=== PATIENT | female | born 1950 | race Caucasian/White ===

== ENCOUNTER → 2016-06-12 | Outpatient (CLI) | payer OTHER ==
[~2016-06-12] MED LIST: ALBUAER2 INH; ASPI81TA28 PO; CALC600T PO; MULTTAB58 PO; POTA1TAB94 PO; SPRIN INH; SYMIN160 INH; VITA400C3 PO
[2016-06-12 12:47] LABS: ALT/SGPT 19 U/L (12-78); AST/SGOT 18 U/L (15-37); BLOOD UREA NITROGEN 14 mg/dl (7-18); BUN/CREATININE RATIO 21.2 (10-20); CALCIUM 8.9 mg/dl (8.5-10.1); CARBON DIOXIDE 30 mmol/L (21-32); CHLORIDE 105 mmol/L (98-107); CREATININE 0.68 mg/dl (0.60-1.20); GLUCOSE 85 mg/dl (70-99); POTASSIUM 3.8 mmol/L (3.5-5.1); SODIUM 141 mmol/L (136-145)
[2016-06-12 12:49] LABS: ALB/GLOB RATIO 1.1 (0.9-2); ALKALINE PHOSPHATASE 59 U/L (45-117); CHOLESTEROL 219 mg/dl (0-200); CHOLESTEROL/HDL RATIO 3.1; HDL CHOLESTEROL 71 mg/dl; LDL CHOLESTEROL CALCULATED 136 mg/dl; TRIGLYCERIDES 61 mg/dl (0-150); VERY LOW DENSITY LIPOPROT CALC 12 mg/dl
== END | disposition home or self-care (01) ==
LOC: C.LABBFT 07:49
PROVIDERS: ATTEND Nurse Practitioner
DX: Z13.6 Encounter for screening for cardiovascular disorders (principal); K80.20 Calculus of gallbladder without cholecystitis without obstruction

== ENCOUNTER → 2016-06-30 | Outpatient (CLI) | payer OTHER | END | disposition home or self-care (01) | LOC: C.LABSPEC 12:25 | PROVIDERS: ATTEND Nurse Practitioner | DX: Z12.11 Encounter for screening for malignant neoplasm of colon (principal) ==

== ENCOUNTER → 2016-08-17 | Outpatient (CLI) | payer OTHER | END | disposition home or self-care (01) | LOC: C.CPL 12:28 | PROVIDERS: ATTEND Orthopaedic Surgery Sports Medicine | DX: M20.11 Hallux valgus (acquired), right foot (principal); R94.31 Abnormal electrocardiogram [ECG] [EKG] ==

== ENCOUNTER → 2017-01-16 | Outpatient (CLI) | payer OTHER | END | disposition home or self-care (01) | LOC: C.MAMM 12:35 | PROVIDERS: ATTEND Nurse Practitioner | DX: M81.0 Age-related osteoporosis without current pathological fracture (principal); M85.89 Other specified disorders of bone density and structure, multiple sites ==

== ENCOUNTER 2017-02-04 09:30 | Emergency (ER) | payer OTHER ==
[~2017-02-04] VITALS: Ht 154.9 cm; Wt 45.0 kg
[2017-02-04 09:40] VITALS: Ht 154.9 cm; Wt 45.0 kg
[2017-02-04 10:14] VITALS: O2SAT 98
[2017-02-04 10:26] LABS: BASO % 0.4 %; BASO ABS # 0.03 K/uL (0-0.2); COMPLETE YES; EOS % 0.4 %; HEMATOCRIT 45.2 % (37-47); IG% 0.1 %; LYMPH % 10.7 %; LYMPH ABS # 0.73 K/uL (1.2-3.4); MEAN CELL VOLUME 88.6 fL (80-100); MEAN CORPUSCULAR HEMOGLOBIN 29.8 pg (25-34); MEAN CORPUSCULAR HGB CONC 33.6 g/dl (32-36); MEAN PLATELET VOLUME 10.8 fL (7.4-10.4); MONO % 9.8 %; NEUT % 78.6 %; PLATELET COUNT 190 K/uL (130-400); WHITE BLOOD COUNT 6.81 K/uL (4.8-10.8)
[2017-02-04 10:46] LABS: CALCIUM 9.5 mg/dl (8.5-10.1); CREATININE 0.73 mg/dl (0.60-1.20); POTASSIUM 4.5 mmol/L (3.5-5.1)
--- NOTE | 2017-02-04 10:48 | DIAGNOSTIC IMAGING REPORT ---
CHEST 2 VIEWS ROUTINE CLINICAL HISTORY: 66 years-old Female presenting with eval for pna, shortness of breath, chest pain. TECHNIQUE: PA and lateral views of the chest were obtained. COMPARISON: 10/24/2015. FINDINGS: Atherosclerosis of aortic arch. Cardiac silhouette normal in size. Mild hyperinflation. Heterogeneity of lung parenchyma. No focal infiltrate. No pleural effusion or pneumothorax. Osseous structures normal. Upper abdomen normal. IMPRESSION: 1. No acute cardiopulmonary disease. 2. Findings suggestive of emphysema. Electronically signed by: Ochoa Conklin M.D. 02/04/2017 10:47 AM Dictated Date/Time: 02/04/2017 10:45 AM
[2017-02-04] MEDS ORDERED: FLUT1INH INH (10:53)
[2017-02-04] MEDS ORDERED: FEXO1TAB46 PO (10:55)
[2017-02-04] MEDS ORDERED: PRVHFAIN INH (10:55)
[2017-02-04 10:57] VITALS: BP 130/66; PULSE 70; TEMP 36.5; O2SAT 91
--- NOTE | 2017-02-04 13:58 | EMERGENCY ROOM VISIT NOTE ---
History Report prepared by Sharon: Nora Faustin Under the Supervision of: Dr. Jay Strong M.D. First contact with patient: 09:50 Chief Complaint: SHORTNESS OF BREATH Stated Complaint: SOB,CHEST PAIN Nursing Triage Summary: Pt c/o SOB and nonproductive cough since this am History of Present Illness The patient is a 66 year old female who presents to the Emergency Room with complaints of persistent deep cough starting this morning. The patient notes that she has not been feeling herself for the past few days. She has been spending more time lying around the house. She started having a dry cough this morning. She does feel congested, but she has not coughed anything up. She has some chest tightness with deep breaths only which is chronic for her. She does have a history of COPD and often gets this tightness at times with deep breaths. She denies any fever, SOB, wheezing, leg swelling, or leg pain. She denies any history of heart disease. She is not on oxygen at home. Her main reason for coming in today was because she did not wish to have her illness progress to the point where she needed to be admitted. Source of History: patient Onset: this morning Position: other (global) Quality: other (deep cough) Timing: other (persistent) Associated Symptoms: No fevers, No SOB Note: Pt reports congestion, chest tightness with deep inspiration. Pt denies wheezing , leg swelling/pain. Review of Systems See HPI for pertinent positives & negatives. A total of 10 systems reviewed and were otherwise negative. Past Medical & Surgical Medical Problems: (1) COPD (chronic obstructive pulmonary disease) (2) SOB (shortness of breath) Family History No pertinent family history stated. Social History Smoking Status: Former Smoker Alcohol Use: none Drug Use: none Housing Status: lives alone Occupation Status: employed Current/Historical Medications Scheduled Aspirin (Aspirin Ec), 81 MG PO DAILY Calcium Carbonate (Calcium 600), 1,200 MG PO DAILY Fexofenadine Hcl (Evita), 180 MG PO DAILY Fluticasone Furoate-Vilanterol (Breo Ellipta), 1 PUFF INH DAILY Multiple Vitamin (Multivitamin), 1 TAB PO DAILY Potassium Gluconate (Gnc Potassium Gluconate 9), 595 MG PO DAILY Vitamin E (Vitamin E 400 Iu), 400 INTER.UNIT PO DAILY Scheduled PRN Albuterol (Ventolin Hfa), 2 PUFFS INH DAILY PRN for SOB/Wheezing Allergies Coded Allergies: No Known Allergies (Unverified , 02/04/17) Physical Exam Vital Signs Date Time Temp Pulse Resp B/P (MAP) Pulse Ox O2 Delivery O2 Flow Rate FiO2 02/04/17 10:57 36.5 70 20 130/66 91 Room Air 02/04/17 10:25 77 02/04/17 10:14 98 Nasal Cannula 02/04/17 09:40 90 Room Air 02/04/17 09:40 37.0 95 16 139/77 91 Room Air Physical Exam Constitutional: Vital signs reviewed. Eyes: Pupils are equal round reactive to light. Conjunctiva are noninjected. ENT: Pharynx is clear without erythema or exudate. Mucous membranes are moist. Neck supple without meningeal signs. Respiratory: Clear to auscultation bilaterally. Breath sounds are equal bilaterally. No wheezing or rales. Cardiovascular: Regular rate and rhythm. No rubs or gallops. GI: Soft, nondistended and nontender. Bowel sounds are present. Musculoskeletal: No peripheral edema. No lower extremity tenderness. Integumentary: No cyanosis. Neurological: The patient is awake and alert. No focal deficits. Psychiatric: Normal affect. Medical Decision & Procedures ER Provider Diagnostic Interpretation: X-ray results as stated below per interpretation by me and the radiologist: CHEST 2 VIEWS ROUTINE CLINICAL HISTORY: 66 years-old Female presenting with eval for pna, shortness of breath, chest pain. TECHNIQUE: PA and lateral views of the chest were obtained. COMPARISON: 10/24/2015. FINDINGS: Atherosclerosis of aortic arch. Cardiac silhouette normal in size. Mild hyperinflation. Heterogeneity of lung parenchyma. No focal infiltrate. No pleural effusion or pneumothorax. Osseous structures normal. Upper abdomen normal. IMPRESSION: 1. No acute cardiopulmonary disease. 2. Findings suggestive of emphysema. Electronically signed by: Ochoa Conklin M.D. 02/04/2017 10:47 AM Dictated Date/Time: 02/04/2017 10:45 AM Laboratory Results 02/04/17 10:05 Red Blood Count 5.10, Mean Corpuscular Volume 88.6, Mean Corpuscular Hemoglobin 29.8, Mean Corpuscular Hemoglobin Concent 33.6, Mean Platelet Volume 10.8, Neutrophils (%) (Auto) 78.6, Lymphocytes (%) (Auto) 10.7, Monocytes (%) (Auto) 9.8, Eosinophils (%) (Auto) 0.4, Basophils (%) (Auto) 0.4, Neutrophils # (Auto) 5.34, Lymphocytes # (Auto) 0.73, Monocytes # (Auto) 0.67, Eosinophils # (Auto) 0.03, Basophils # (Auto) 0.03 02/04/17 10:05 Test 02/04/17 10:05 02/04/17 10:11 White Blood Count 6.81 K/uL (4.8-10.8) Red Blood Count 5.10 M/uL (4.2-5.4) Hemoglobin 15.2 g/dL (12.0-16.0) Hematocrit 45.2 % (37-47) Mean Corpuscular Volume 88.6 fL (80-100) Mean Corpuscular Hemoglobin 29.8 pg (25-34) Mean Corpuscular Hemoglobin Concent 33.6 g/dl (32-36) Platelet Count 190 K/uL (130-400) Mean Platelet Volume 10.8 fL (7.4-10.4) Neutrophils (%) (Auto) 78.6 % Lymphocytes (%) (Auto) 10.7 % Monocytes (%) (Auto) 9.8 % Eosinophils (%) (Auto) 0.4 % Basophils (%) (Auto) 0.4 % Neutrophils # (Auto) 5.34 K/uL (1.4-6.5) Lymphocytes # (Auto) 0.73 K/uL (1.2-3.4) Monocytes # (Auto) 0.67 K/uL (0.11-0.59) Eosinophils # (Auto) 0.03 K/uL (0-0.5) Basophils # (Auto) 0.03 K/uL (0-0.2) RDW Standard Deviation 43.5 fL (36.4-46.3) RDW Coefficient of Variation 13.3 % (11.5-14.5) Immature Granulocyte % (Auto) 0.1 % Immature Granulocyte # (Auto) 0.01 K/uL (0.00-0.02) Prothrombin Time 10.0 SECONDS (9.0-12.0) Prothromb Time International Ratio 1.0 (0.9-1.1) Activated Partial Thromboplast Time 25.4 SECONDS (21.0-31.0) Partial Thromboplastin Ratio 1.0 Anion Gap 3.0 mmol/L (3-11) Est Creatinine Clear Calc Drug Dose 55.3 ml/min Estimated GFR () 100.9 Estimated GFR (Non- 87.0 BUN/Creatinine Ratio 18.0 (10-20) Calcium Level 9.5 mg/dl (8.5-10.1) Bedside Troponin I < 0.030 ng/ml (0-0.045) Laboratory results as reviewed by me. ECG Indication: other (chest tightness) Rate (beats per minute): 75 Rhythm: normal sinus Findings: no acute ischemic change, no ectopy ED Course 0956: The patient was evaluated in room B7. A complete history and physical exam was performed. 1106: Upon reevaluation, the patient appeared to have improvement of her symptoms. I discussed tonight's findings with her and the need for follow up. She verbalized agreement of the treatment plan. She will follow up within 2 days. She was discharged home. Medical Decision This is a 66-year-old female who presents with a cough and congestion. Differential diagnosis includes COPD exacerbation, bronchitis, pneumonia, URI, cardiac. I did perform a limited focused review of portions of the patient's old chart on the electronic medical record. The patient has had no recent pertinent visits to this hospital. I did evaluate the patient as noted above. The patient is presenting with cold symptoms. She denies having any shortness of breath. She does complain of some chest tightness with deep breaths only and states this is normal for her with her COPD. IV access was established. I did order and personally review the patient's 12-lead EKG and chest x-ray as described above. Her twelve-lead EKG is unremarkable. Chest x-ray does not show any signs of pneumonia. I did order and review the patient's blood work as noted in the electronic medical record. Her white blood cell count is not elevated. Troponin is negative. I did reassess patient. I did discuss the test results with her. At this time I do not see any indication for hospitalization or antibiotic treatment. I did recommend, however, close follow up with her doctor for reassessment within the next few days and return for any worsening symptoms or new symptoms as outlined below. She was discharged in good condition. Medication Reconcilliation Current Medication List: was personally reviewed by me Blood Pressure Screening Patient's blood pressure: Elevated blood pressure Blood pressure disposition: Referred to PCP Impression Primary Impression: Acute bronchitis Additional Impression: COPD (chronic obstructive pulmonary disease) Scribe Attestation The scribe's documentation has been prepared under my direct and personally reviewed by me in its entirety. I confirm that the note above accurately reflects all work, treatment, procedures, and medical decision making performed by me. Departure Information Dispostion Home / Self-Care Referrals Mary Ross C.R.N.PRand (PCP) Forms HOME CARE DOCUMENTATION FORM, IMPORTANT VISIT INFORMATION Patient Instructions ED Upper Resp Infec No Abx Tx, My [facility] Additional Instructions You have been examined and treated today on an emergency basis only. This is not a substitute for, or an effort to provide, complete comprehensive medical care. It is impossible to recognize and treat all injuries or illnesses in a single emergency department visit. It is therefore important that you follow up closely with your physician this week. Call as soon as possible for an appointment. Return for worsening symptoms or if you develop fever, vomiting, difficulty breathing or any other concerning symptoms. Problem Qualifiers Primary Impression: Acute bronchitis Bronchitis organism: unspecified organism Qualified Codes: J20.9 - Acute bronchitis, unspecified Additional Impression: COPD (chronic obstructive pulmonary disease) COPD type: unspecified COPD Qualified Codes: J44.9 - Chronic obstructive pulmonary disease, unspecified
== END 2017-02-04 11:25 | disposition home or self-care (01) ==
LOC: C.EDB 09:31
DX: J20.9 Acute bronchitis, unspecified (principal); J44.9 Chronic obstructive pulmonary disease, unspecified; Z87.891 Personal history of nicotine dependence; Z79.82 Long term (current) use of aspirin; Z79.899 Other long term (current) drug therapy

== ENCOUNTER → 2017-03-27 | Outpatient (CLI) | payer OTHER ==
[~2017-03-27] MED LIST changes: -ALBUAER2 INH; +FEXO1TAB46 PO; +FLUT1INH INH; +HYDR-5688 PO; +PRVHFAIN INH; -SPRIN INH; -SYMIN160 INH
[2017-03-27 12:09] LABS: HEMATOCRIT 43.9 % (37-47); HEMOGLOBIN 14.7 g/dL (12.0-16.0); MEAN CELL VOLUME 88.2 fL (80-100); MEAN CORPUSCULAR HEMOGLOBIN 29.5 pg (25-34); MEAN CORPUSCULAR HGB CONC 33.5 g/dl (32-36); MEAN PLATELET VOLUME 10.9 fL (7.4-10.4); PLATELET COUNT 223 K/uL (130-400); RED CELL DISTRIBUTION WIDTH CV 13.9 % (11.5-14.5); RED CELL DISTRIBUTION WIDTH SD 44.9 fL (36.4-46.3); WHITE BLOOD COUNT 6.54 K/uL (4.8-10.8)
[2017-03-27 12:18] LABS: PTT PATIENT 25.5 SECONDS (21.0-31.0)
== END | disposition home or self-care (01) ==
LOC: C.CPL 10:37
PROVIDERS: ATTEND Podiatrist Foot & Ankle Surgery
DX: Z01.818 Encounter for other preprocedural examination (principal)

== ENCOUNTER → 2017-04-02 | Day surgery (SDC) | payer OTHER ==
[2017-03-29 12:00] VITALS: Ht 154.9 cm; Wt 44.5 kg
[~2017-04-02] VITALS: Ht 154.9 cm; Wt 44.5 kg
[~2017-04-02] MED LIST changes: +CEFAZOLIN 1000MG IV PUSH 7.5 ML IV SCH; +FENTANYL CITRATE INJ 50 MCG/1 ML 2 ML VIAL ONE; +LACTATED RINGER'S 1000ML 1,000 ML IV SCH; +LIDOCAINE HCL 1% 20 ML VIAL ONE; +LIDOCAINE HCL 2% 2 ML VIAL (20MG/ML) ONE; +MIDAZOLAM HCL 1 MG/ML 2ML VIAL ONE; +PROPOFOL IV EMULSION 10 MG/ML 20 ML VIAL IV ONE
--- NOTE | 2017-04-02 12:06 | History & Physical Bridge - SC ---
H&P Re-Evaluation Bridge Note: I have examined the patient, reviewed the History & Physical and in the interval since the performance of the History & Physical I have noted the following changes of clinical significance: No changes noted. Patient understands and elects to proceed with surgery consisting of right 4th digit amputation. All consents have been signed. No guarantees were made. All questions have been answered to the patient's satisfaction.
--- NOTE | 2017-04-02 14:17 | [facility] Post Operative Brief Note ---
Immediate Operative Summary Operative Date Apr 02, 2017. Pre-Operative Diagnosis Right Foot Hammertoe, Pain Post-Operative Diagnosis Same Procedure(s) Performed Right Foot Fourth Digit Amputation Surgeon Dr. Bell Intellectual Property Manager Surgeon(s) None Estimated Blood Loss 2 ml Findings Consistent with Post-Op Diagnosis Specimens A. Right Foot Fourth Digit Drains None Anesthesia Type MAC Complication(s) none Disposition Accompanied Pt To Recovery: no
--- NOTE | 2017-04-02 14:23 | [facility] Operative Report ---
Operative Report Operative Date Apr 02, 2017. Pre-Operative Diagnosis Painful overlapping 4th digit right foot Post-Operative Diagnosis Painful overlapping 4th digit right foot Procedure(s) Performed Amputation 4th digit right foot Surgeon Kehinde Bell DPM Estimated Blood Loss 2 ml Specimens Right 4th digit sent to pathology for histopathological specimen Drains None Anesthesia Type MAC Complication(s) none Disposition no Indications This is a 66 year old female with past medical history significant for asthma and seasonal allergies who presented to our office with the chief complaint of an overriding 4th digit on the right foot. The 4th digit is overriding the 3rd digit. Patient has extensive past surgical history to her right foot done by an outside surgeon consisting of previous hammertoe arthrodesis surgeries to her 2nd and 3rd digits on her right foot, as well as previous hallux valgus surgery to her right 1st TMP joint. Patient has attempted all conservative treatments, consisting of taping, toe spacers, wider shoes, Budin splint, all of which has failed. She is requesting surgical amputation of her 4th digit right foot. I did recommend patient undergo syndactylization of her 4th digit to her 3rd digit in an attempt to salvage this toe. Patient deferred this however due to potential risk of wound healing complications and her desire to be back to work as quickly as possible. The perioperative indications, planned procedure, possible benefits, risks, complications, and anticipated healing time and management were discussed in detail with the patent. She understands and elects to proceed with surgery at this time. All consents have been signed. No guarantees were made. All questions have been answered to the patient's satisfaction. Medical clearance has been obtained by the patient's primary care physician. Description of Procedure Under mild sedation, the patient was brought into the OR and placed on the table in a supine position. Final verification of the patient, surgery, and limb designation was performed via the time-out procedure. A pneumatic ankle tourniquet was then placed on the patient's right ankle. IV local sedation was then initiated by the anesthesia team. Local block was then performed about the operative site of the right foot. The right foot was then scrubbed, prepped and draped in the usual aseptic manner. An Esmarch bandage was used to exsanguinate the patient's right foot and the pneumatic ankle tourniquet was inflated to 250 mmHg. At this time, surgery began as follows: Attention was directed to the dorsal aspect of the 4th digit right foot, where a fishmouth type incision was made. This incision was made down to the level of bone and encompassed the 4th digit. The 4th digit was then disarticulated at the MTP joint, taking care to identify and retract all vital neurovascular structures. At this time, the 4th digit was resected in toto and passed from the operative field. This was sent to pathology for gross histopathological specimen. The wound was then flushed with copious amounts of NSS. Deep closure was performed with 4-0 vicryl. Skin closure was performed with 3-0 nylon. A post -operative dressing was then applied consisting of betadine soaked adaptik, 4x4 gauze, kerlix and an tal wrap. At this time, the pneumatic ankle tourniquet was deflated and prompt hyperemic response was noted to the remaining digits of the right foot. Patient tolerated the procedure and anesthesia well. She was transferred to recovery with vital signs stable and vascular status intact to the right foot. I attest to the content of the Intraoperative Record and any orders documented therein. Any exceptions are noted below.
--- NOTE | 2017-04-02 14:23 | Discharge Instructions-SurgCtr ---
Discharge Instructions Date of Service Apr 02, 2017. Visit Reason for Visit: Right Foot Hammertoes, Pain Discharge Discharge Diagnosis / Problem: Post-op amputation right 4th digit Discharge Goals Goal(s): Decrease discomfort, Improve function Activity Recommendations Activity Limitations: as noted below Limit ambulation to right foot. Rest, ice at ankle, elevate right foot. May ambulate with assistance of CAM boot. Anesthesia . Post Anesthesia Instructions: If you have had General Anesthesia or IV Sedation: * Do not drive today. * Resume driving when surgeon permits. * Do not make important decisions or sign legal documents today. * Call surgeon for: 1. Temperature elevations greater than 101 degrees F. 2. Uncontrollable pain. 3. Excessive bleeding. 4. Persistent nausea and vomiting. 5. Medication intolerance (nausea, vomiting or rash). * For nausea and vomiting use only clear liquids such as: tea, soda, bouillon until nausea subsides, then gradually increase diet as tolerated. * If you have any concerns or questions, call your surgeon's office. If physician is unavailable and it is an emergency, call 911 or go to the nearest emergency room. . Instructions / Follow-Up Instructions / Follow-Up Keep dressing dry, clean and intact. Follow-up within [address] Bell in the office. Diet Recommendations Home Diet: resume previous diet Procedures Procedures Performed: Amputation right 4th digit Pending Studies Studies pending at discharge: no Medical Emergencies . Who to Call and When: Medical Emergencies: If at any time you feel your situation is an emergency, please call 911 immediately. . Non-Emergent Contact Non-Emergency issues call your: Primary Care Provider . . "Provider Documentation" section prepared by Kehinde Bell. . [place] Drug Monitoring Program Search Results: patient reviewed within database, no issues identified
[2017-04-02 14:25] VITALS: TEMP 36.4
--- NOTE | 2017-04-02 14:46 | Anesthesia Progress Nt - [facility] ---
Anesthesia Post Op Note Date & Time Apr 02, 2017 at 14:46 Vital Signs Pain Intensity: 0 Vital Signs Past 12 Hours Date Time Temp Pulse Resp B/P (MAP) Pulse Ox O2 Delivery O2 Flow Rate FiO2 04/02/17 14:25 36.4 68 16 130/67 (88) 92 Room Air 04/02/17 11:51 36.6 75 16 113/69 (84) 95 Room Air Notes Mental Status: alert / awake / arousable, participated in evaluation Pt Amnestic to Procedure: Yes Nausea / Vomiting: adequately controlled Pain: adequately controlled Airway Patency, RR, SpO2: stable & adequate BP & HR: stable & adequate Hydration State: stable & adequate Anesthetic Complications: no major complications apparent
[2017-04-02 14:54] VITALS: BP 143/76; PULSE 56; O2SAT 95
--- NOTE | 2017-04-04 14:38 | DIAGNOSTIC IMAGING REPORT ---
OSMAN FOOT, 2 VIEWS CLINICAL HISTORY: 66 years-old Female presenting with Post-op portable. TECHNIQUE: Frontal and lateral views of the right foot were obtained. COMPARISON: None. FINDINGS: Plate and screw fixation of the medial cuneiform and first metatarsal with arthrodesis of the first tarsometatarsal articulation. Osteopenia. Osteolysis of the heads of the proximal phalanges of the second and third toes. The fourth toe is absent. Focal soft tissue gas noted in place of the fourth toe. Allowing for osteopenia, no evidence of fracture or acute malalignment. Enthesophyte noted at the origin of the plantar fascia. Atherosclerosis. IMPRESSION: 1. Posterior fixation across the first metatarsal metatarsal articulation. 2. Osteopenia. 3. Osteolysis of the heads of the proximal phalanges of the second and third toes. This raises concern for osteomyelitis. The chronicity cannot be determined as no prior radiographs are currently available for review. The report will be called/faxed according to standard departmental protocol. Electronically signed by: Ochoa Conklin M.D. 04/04/2017 2:36 PM Dictated Date/Time: 04/04/2017 2:34 PM
== END | disposition home or self-care (01) ==
LOC: X.SURG 11:32
PROVIDERS: ATTEND Podiatrist Foot & Ankle Surgery
DX: M20.40 Other hammer toe(s) (acquired), unspecified foot (principal); M20.5X1 Other deformities of toe(s) (acquired), right foot; J44.9 Chronic obstructive pulmonary disease, unspecified; M25.50 Pain in unspecified joint; M21.619 Bunion of unspecified foot; L84 Corns and callosities; M81.0 Age-related osteoporosis without current pathological fracture; Z87.891 Personal history of nicotine dependence; Z79.899 Other long term (current) drug therapy; Z79.82 Long term (current) use of aspirin

== ENCOUNTER → 2017-05-30 | Outpatient (CLI) | payer OTHER ==
[~2017-05-30] MED LIST changes: -CEFAZOLIN 1000MG IV PUSH 7.5 ML IV SCH; -FENTANYL CITRATE INJ 50 MCG/1 ML 2 ML VIAL ONE; -HYDR-5688 PO; -LACTATED RINGER'S 1000ML 1,000 ML IV SCH; -LIDOCAINE HCL 1% 20 ML VIAL ONE; -LIDOCAINE HCL 2% 2 ML VIAL (20MG/ML) ONE; -MIDAZOLAM HCL 1 MG/ML 2ML VIAL ONE; -PROPOFOL IV EMULSION 10 MG/ML 20 ML VIAL IV ONE
--- NOTE | 2017-05-30 14:04 | DIAGNOSTIC IMAGING REPORT ---
(CHEST) THORAX WITHOUT CLINICAL HISTORY: 66 years-old Female presenting with J44.9 Chronic obstructive pulmonary disease Scheduled 05/30/17 at. TECHNIQUE: Multidetector CT imaging of the chest was performed without the use of intravenous contrast. IV contrast: None. A dose lowering technique was used consistent with the principles of ALARA (as low as reasonably achievable). COMPARISON: 12/21/2016. CT DOSE (mGy.cm): The estimated cumulative dose is 162.45 mGycm. FINDINGS: Carbon Brushes Assembler topogram: Unremarkable. On soft tissue windows, normal thyroid and thoracic inlet. No axillary, supraclavicular, or mediastinal lymphadenopathy. Evaluation of the babar limited without intravenous contrast. Atherosclerosis of the aorta. Normal heart size. Coronary artery calcification. No pericardial or pleural effusion. Upper abdomen normal. On lung windows, moderate to severe emphysema. Scattered areas of linear reticular opacities likely scarring and unchanged from prior. Calcified granuloma evident in the right middle lobe. No new focal nodule or infiltrate. Bronchial wall thickening. Central airways patent. On bone windows, old left rib fractures suggested. No acute osseous injury. IMPRESSION: 1. Moderate to severe emphysema. 2. Bronchial wall thickening compatible with bronchitis. 3. No new focal nodule. Electronically signed by: Ochoa Conklin M.D. 05/30/2017 2:03 PM Dictated Date/Time: 05/30/2017 1:55 PM
== END | disposition home or self-care (01) ==
LOC: C.CTS 12:41
PROVIDERS: ATTEND Internal Medicine Pulmonary Disease
DX: J44.9 Chronic obstructive pulmonary disease, unspecified (principal)

== ENCOUNTER → 2017-06-12 | Outpatient (CLI) | payer OTHER ==
[~2017-06-12] MED LIST changes: +PRT40 PO; +SACC250C3 PO; +VANC5CAP PO; +VITA1TAB4 PO
[2017-06-12 17:00] LABS: BASO % 0.6 %; BASO ABS # 0.04 K/uL (0-0.2); EOS ABS # 0.14 K/uL (0-0.5); HEMOGLOBIN 14.8 g/dL (12.0-16.0); IG# 0.03 K/uL (0.00-0.02); LYMPH % 21.2 %; LYMPH ABS # 1.51 K/uL (1.2-3.4); MEAN CELL VOLUME 88.4 fL (80-100); MEAN CORPUSCULAR HEMOGLOBIN 29.7 pg (25-34); MEAN CORPUSCULAR HGB CONC 33.6 g/dl (32-36); MEAN PLATELET VOLUME 11.2 fL (7.4-10.4); MONO % 8.3 %; MONO ABS # 0.59 K/uL (0.11-0.59); NEUT % 67.5 %; NEUT ABS # 4.81 K/uL (1.4-6.5); PLATELET COUNT 244 K/uL (130-400); RED CELL DISTRIBUTION WIDTH CV 13.6 % (11.5-14.5); RED CELL DISTRIBUTION WIDTH SD 44.4 fL (36.4-46.3); WHITE BLOOD COUNT 7.12 K/uL (4.8-10.8)
[2017-06-12 17:09] LABS: BLOOD UREA NITROGEN 15 mg/dl (7-18); CREATININE 0.68 mg/dl (0.60-1.20)
== END | disposition home or self-care (01) ==
LOC: C.LABBFT 14:13
PROVIDERS: ATTEND Physician Assistant Medical
DX: R10.813 Right lower quadrant abdominal tenderness (principal)

== ENCOUNTER 2017-06-15 10:45 | Inpatient (IN) | payer OTHER ==
[~2017-06-15] VITALS: Ht 154.9 cm; Wt 43.0 kg
[~2017-06-15 10:45] MED LIST changes: -PRT40 PO; -SACC250C3 PO; -VANC5CAP PO; -VITA1TAB4 PO
[2017-06-15] MEDS ORDERED: SODIUM CHLORIDE 0.9% 1000ML 1,000 ML IV STA ×2 (11:11→14:51)
[2017-06-15] MEDS ORDERED: METHYLPREDNISOLONE 125 MG VIAL IV STA (11:20)
[2017-06-15 11:28] LABS: BASO % 0.1 %; BASO ABS # 0.01 K/uL (0-0.2); HEMATOCRIT 48.2 % (37-47); HEMOGLOBIN 16.7 g/dL (12.0-16.0); IG# 0.03 K/uL (0.00-0.02); LYMPH ABS # 0.83 K/uL (1.2-3.4); MEAN CELL VOLUME 86.4 fL (80-100); MEAN CORPUSCULAR HEMOGLOBIN 29.9 pg (25-34); MEAN CORPUSCULAR HGB CONC 34.6 g/dl (32-36); MONO % 14.1 %; MONO ABS # 1.29 K/uL (0.11-0.59); NEUT % 76.5 %; NEUT ABS # 7.02 K/uL (1.4-6.5); PLATELET COUNT 238 K/uL (130-400); RED CELL DISTRIBUTION WIDTH CV 13.7 % (11.5-14.5); RED CELL DISTRIBUTION WIDTH SD 43.2 fL (36.4-46.3); WHITE BLOOD COUNT 9.18 K/uL (4.8-10.8)
[2017-06-15] MEDS ORDERED: ALBUT/IPRATROP 3MG/0.5MG NEB 3 ML VIAL INH ONE (11:30)
[2017-06-15 11:31] VITALS: PULSE 87; O2SAT 98
[2017-06-15 11:37] LABS: ALBUMIN 4.1 gm/dl (3.4-5.0); CALCIUM 9.4 mg/dl (8.5-10.1); CREATININE 1.2 mg/dl (0.60-1.20); POTASSIUM 4.1 mmol/L (3.5-5.1)
--- NOTE | 2017-06-15 11:38 | DIAGNOSTIC IMAGING REPORT ---
CHEST ONE VIEW PORTABLE CLINICAL HISTORY: Chest pain. COMPARISON STUDY: Chest CT May 30, 2017. FINDINGS: Severe emphysema is noted. No pneumothorax or pleural effusion is noted. There is no consolidation or evidence for pulmonary edema. Cardiomediastinal silhouette is normal. IMPRESSION: 1. No acute cardiopulmonary findings. 2. Severe emphysema. Electronically signed by: Mahad Shah M.D. 06/15/2017 11:37 AM Dictated Date/Time: 06/15/2017 11:36 AM
[2017-06-15 11:42] LABS: TOTAL PROTEIN 8.7 gm/dl (6.4-8.2)
[2017-06-15] MEDS ORDERED: VITA1TAB4 PO (11:51)
--- NOTE | 2017-06-15 13:09 | DIAGNOSTIC IMAGING REPORT ---
ABDOMINAL ULTRASOUND, RIGHT UPPER QUADRANT HISTORY: Right upper quadrant pain. COMPARISON: CT of the chest and abdomen April 13, 2008. FINDINGS: Liver is sonographically normal. There is no biliary ductal dilatation. There are multiple gallstones within the gallbladder. There is no gallbladder wall thickening or pericholecystic fluid. The pancreas is largely obscured due to overlying bowel gas. The pancreatic body is normal. There is no right hydronephrosis. There is a right renal cyst. IMPRESSION: 1. Cholelithiasis. No sonographic evidence of acute cholecystitis. 2. No biliary ductal dilatation. 3. Partially obscured pancreas. Electronically signed by: Mahad Shah M.D. 06/15/2017 1:08 PM Dictated Date/Time: 06/15/2017 1:03 PM
[2017-06-15] MEDS ORDERED: GI COCKTAIL PO STA (14:48)
[2017-06-15] MEDS ORDERED: ONDANSETRON INJ 2 MG/ML 2 ML VIAL IV STA (14:48)
[2017-06-15] MEDS ORDERED: ALUMINUM/MAGNESIUM SUSP 30 ML UDC ONE (14:56)
[2017-06-15] MEDS ORDERED: LIDOCAINE HCL 2% VISC SOLN 20 ML UDC ONE (14:57)
[2017-06-15] MEDS ORDERED: FAMOTIDINE 20 MG TAB PO ONE (15:00)
[2017-06-15 15:39] LABS: PHOSPHORUS 2.1 mg/dl (2.5-4.9)
[2017-06-15] MEDS ORDERED: ASPIRIN 81 MG CHEW PO STA (15:46)
[2017-06-15 16:16] LABS: INFLUENZA A PCR Neg for Influ A (NEG); INFLUENZA B PCR Neg for Influ B (NEG)
--- NOTE | 2017-06-15 16:33 | History and Physical ---
History & Physical Date & Time of Service: Jun 15, 2017 at 16:31 Chief Complaint: Breathing, Gallbladder Attack On Thur Primary Care Physician: Mary Ross, LonnieNRandPRand History of Present Illness Source: patient This is a 66 yo F with PMHx of COPD/emphysema, remote smoking hx of 1/2 ppd x 10 years, quit 10 years ago, who presents to the ER with worsening abdominal pain and nausea/vomiting times approximately 5 days. The patient notes that last Sunday she initially noted some right upper quadrant pain. She sought out her PCP for an acute appointment on Sunday. At that point in time blood work was collected to rule out pancreatitis and was negative. She was scheduled for an outpatient abdominal CT the patient notes that she had worsening. Nausea and vomiting starting Sunday night and lasted for 48 hours. She has been able to keep some water and Gatorade down within the past day, however her appetite has been very poor. She denies any recent sick contacts or consumption of raw/ undercooked foods. Here in the ER patient is found to be in LEA with creatinine elevated at 1.2, previously was 0.6-0.7 earlier this week. EKG reviewed and shows some ST wave inversions in the lateral leads which are concerning for possible demand ischemia, her troponin is also minimally present. Abdominal ultrasound was completed showing cholelithiasis, no other acute findings. She received Solu-Medrol 125 mg and a 1 hour long nebulizer in the ER as she had described shortness of breath with initial presentation. At this point in time she denies sob or castellano. Past Medical/Surgical History Medical Problems: (1) COPD (chronic obstructive pulmonary disease) (2) Emphysema lung (3) SOB (shortness of breath) Family History FHx: dementia FHx: emphysema Social History Smoking Status: Former Smoker Smokeless Tobacco Use: No Drug Use: none Marital Status: other (Common-law 26 years, significant other ) Housing status: lives alone Occupational Status: employed Allergies Coded Allergies: No Known Allergies (Unverified , 04/02/17) Home Medications Scheduled Aspirin (Aspirin Ec), 81 MG PO QAM Calcium Carbonate (Calcium 600), 1,200 MG PO QAM Fexofenadine Hcl (Evita), 180 MG PO QAM Fluticasone Furoate-Vilanterol (Breo Ellipta), 1 PUFF INH QAM Multiple Vitamin (Multivitamin), 1 TAB PO DAILY Potassium Gluconate (Gnc Potassium Gluconate 9), 595 MG PO DAILY Vitamin E (Vitamin E), 1 TAB PO DAILY Scheduled PRN Albuterol (Ventolin Hfa), 2 PUFFS INH DAILY PRN for SOB/Wheezing Review of Systems Constitutional: No fever, sweats or chills Eyes: No diplopia, no worsening or blurred vision ENT: normal hearing, no trouble swallowing Respiratory: No cough, sputum, dyspnea at rest or on exertion Cardiovascular: No chest pain, tightness or palpitations Abdomen: See HPI Musculoskeletal: No joint pain, calf pain, swelling Neurologic: No weakness, numbness/tingling, or balance problems Psychiatric: No anxiety or depression Skin: No rash or itch Physical Exam Vital Signs Date Time Temp Pulse Resp B/P (MAP) Pulse Ox O2 Delivery O2 Flow Rate FiO2 06/15/17 15:51 83 18 110/65 92 Room Air 06/15/17 15:19 82 06/15/17 14:11 76 20 101/77 92 Room Air 06/15/17 13:12 94 16 114/78 94 06/15/17 12:11 79 20 118/65 99 Nebulizer 06/15/17 11:59 76 06/15/17 11:31 87 16 98 Room Air 06/15/17 10:48 36.4 103 20 134/87 92 Room Air General: awake, alert, no apparent distress +thin Head: Normocephalic, atraumatic ENT: PERRL, EOMI, no pharyngeal exudate, mucous membranes slightly dry Chest: Clear to auscultation, on room air, no adventitious breath sounds Cardiac: Regular rate and rhythm, no murmur, no JVD, normal peripheral pulses, good capillary refill Abdominal: NABS x 4 quadrants, soft, mild tenderness in the RLQ with deep palpation, no RUQ tenderness, no rebound, guarding or tenderness Extremities: Normal inspection, no peripheral edema or erythema, calfs nontender to palpation Psych: Normal mood and affect Neuro: AAO x 3, strength intact bilaterally and related 5/5, no motor deficits, speech is clear, no peripheral sensory deficits Diagnostics Laboratory Results Results Past 24 Hours Test 06/15/17 11:00 06/15/17 11:36 06/15/17 13:10 06/15/17 14:52 Range/Units White Blood Count 9.18 4.8-10.8 K/uL Red Blood Count 5.58 4.2-5.4 M/uL Hemoglobin 16.7 12.0-16.0 g/dL Hematocrit 48.2 37-47 % Mean Corpuscular Volume 86.4 80-100 fL Mean Corpuscular Hemoglobin 29.9 25-34 pg Mean Corpuscular Hemoglobin Concent 34.6 32-36 g/dl Platelet Count 238 130-400 K/uL Mean Platelet Volume 11.0 7.4-10.4 fL Neutrophils (%) (Auto) 76.5 % Lymphocytes (%) (Auto) 9.0 % Monocytes (%) (Auto) 14.1 % Eosinophils (%) (Auto) 0.0 % Basophils (%) (Auto) 0.1 % Neutrophils # (Auto) 7.02 1.4-6.5 K/uL Lymphocytes # (Auto) 0.83 1.2-3.4 K/uL Monocytes # (Auto) 1.29 0.11-0.59 K/uL Eosinophils # (Auto) 0.00 0-0.5 K/uL Basophils # (Auto) 0.01 0-0.2 K/uL RDW Standard Deviation 43.2 36.4-46.3 fL RDW Coefficient of Variation 13.7 11.5-14.5 % Immature Granulocyte % (Auto) 0.3 % Immature Granulocyte # (Auto) 0.03 0.00-0.02 K/uL Sodium Level 133 136-145 mmol/L Potassium Level 4.1 3.5-5.1 mmol/L Chloride Level 102 98-107 mmol/L Carbon Dioxide Level 23 21-32 mmol/L Anion Gap 8.0 3-11 mmol/L Blood Urea Nitrogen 39 7-18 mg/dl Creatinine 1.20 0.60-1.20 mg/dl Est Creatinine Clear Calc Drug Dose 31.7 ml/min Estimated GFR () 55.3 Estimated GFR (Non- 47.7 BUN/Creatinine Ratio 32.7 10-20 Random Glucose 148 70-99 mg/dl Calcium Level 9.4 8.5-10.1 mg/dl Total Bilirubin 1.0 0.2-1 mg/dl Direct Bilirubin 0.2 0-0.2 mg/dl Aspartate Amino Transf (AST/SGOT) 29 15-37 U/L Alanine Aminotransferase (ALT/SGPT) 28 12-78 U/L Alkaline Phosphatase 71 45-117 U/L Troponin I 0.017 0.022 0-0.045 ng/ml Total Protein 8.7 6.4-8.2 gm/dl Albumin 4.1 3.4-5.0 gm/dl Lipase 125 73-393 U/L Venous Blood pH 7.39 7.36-7.41 Venous Blood Partial Pressure CO2 41 38.0-50.0 mmHg Venous Blood Partial Pressure O2 26 mmHg Venous Blood HCO3 24 mmol/L Venous Blood Oxygen Saturation < 60.0 % Venous Blood Base Excess -0.5 mEq/L Urine Color YELLOW Urine Appearance CLEAR CLEAR Urine pH 5.5 4.5-7.5 Urine Specific [place] 1.027 1.000-1.030 Urine Protein TRACE NEG Urine Glucose (UA) NEG NEG Urine Ketones 1+ NEG Urine Occult Blood NEG NEG Urine Nitrite NEG NEG Urine Bilirubin NEG NEG Urine Urobilinogen NEG NEG Urine Leukocyte Esterase NEG NEG Urine WBC (Auto) 5-10 0-5 /hpf Urine RBC (Auto) 0-4 0-4 /hpf Urine Hyaline Casts (Auto) 10-30 0-5 /lpf Urine Epithelial Cells (Auto) >30 0-5 /lpf Urine Bacteria (Auto) NEG NEG Urine Renal Epithelial Cells 0-5 0-5 /lpf Urine Crystals CALCIUM OXALATE NONE PRSENT Urine Pathogenic Casts See comments 0 /lpf Phosphorus Level 2.1 2.5-4.9 mg/dl Magnesium Level 2.1 1.8-2.4 mg/dl Test 06/15/17 15:20 Range/Units Influenza Type A (RT-PCR) Neg for Influ A NEG Influenza Type B (RT-PCR) Neg for Influ B NEG Diagnostic Radiology ABDOMINAL ULTRASOUND, RIGHT UPPER QUADRANT HISTORY: Right upper quadrant pain. COMPARISON: CT of the chest and abdomen April 13, 2008. FINDINGS: Liver is sonographically normal. There is no biliary ductal dilatation. There are multiple gallstones within the gallbladder. There is no gallbladder wall thickening or pericholecystic fluid. The pancreas is largely obscured due to overlying bowel gas. The pancreatic body is normal. There is no right hydronephrosis. There is a right renal cyst. IMPRESSION: 1. Cholelithiasis. No sonographic evidence of acute cholecystitis. 2. No biliary ductal dilatation. 3. Partially obscured pancreas. Electronically signed by: Mahad Shah M.D. 06/15/2017 1:08 PM Dictated Date/Time: 06/15/2017 1:03 PM The status of this report is Signed. CHEST ONE VIEW PORTABLE CLINICAL HISTORY: Chest pain. COMPARISON STUDY: Chest CT May 30, 2017. FINDINGS: Severe emphysema is noted. No pneumothorax or pleural effusion is noted. There is no consolidation or evidence for pulmonary edema. Cardiomediastinal silhouette is normal. IMPRESSION: 1. No acute cardiopulmonary findings. 2. Severe emphysema. Electronically signed by: Mahad Shah M.D. 06/15/2017 11:37 AM Dictated Date/Time: 06/15/2017 11:36 AM The status of this report is Signed. EKG Normal sinus rhythm T wave abnormality, consider inferior ischemia T wave abnormality, consider anterior ischemia Abnormal ECG When compared with ECG of 15-JUN-2017 11:01, (unconfirmed) Inverted T waves have replaced nonspecific T wave abnormality in Inferior leads Inverted T waves have replaced nonspecific T wave abnormality in Anterior leads Vent. rate 69 BPM WV interval 160 ms QRS duration 78 ms QT/QTc 380/407 ms P-R-T axes 72 65 64 Impression Assessment and Plan This is a 66 yo F with PMHx of COPD/emphysema, remote smoking hx of 1/2 ppd x 10 years, quit 10 years ago, who presents to the ER with worsening abdominal pain and nausea/vomiting times approximately 5 days. Gastritis Dehydration -Hydrate with IVF: NSS + KCl 20 mEq at 100 mL/h 12 hours. -Clear liquid diet - Zofran prn, tylemol for pain - Abd u/s reviewed and is negative for any acute findings-patient was complaining of RLQ pain during my examination with deep palpation - at this time her symptoms are improving, if worsening would consider imaging for appendicitis. - Hemoconcentrated blood work. Mild Hyponatremia - Na 133 likely to improve with hydration Acute kidney injury -Fluids as above -Trend PRP, BUN 39 and creatinine elevated at 1.6 : Cr was previously 0.6-0.7 on 06/12 which appears to be her baseline Hypophosphatemia - Replace via IV ST wave inversions in the lateral leads with minimally elevated troponin -Admit to telemetry -We will trend troponins 2 more sets - initial 0.017 --> 0.022 -EKG reviewed Showing possible ST wave inversions in the lateral leads, second EKG was completed in the ER and showed more definitive ST wave inversion compared to the first. -Patient denies cardiac symptoms including chest pain, SOB, palpitations or flutter-assume that this is demand ischemia in the setting of severe dehydration and LEA versus true ACS. COPD -Continue on home inhalers -Patient did receive Solu-Medrol 125 mg 1 in the ER, at this time feel there is no need to continue steroids as she is not complaining of respiratory symptoms as well as no findings on exam -Duo nebs ordered as needed DVT PBX: Teds, SCDs, heparin subcu CODE STATUS: full code Disposition: Patient from home, PT/OT eval's, I personally interviewed and examined the patient. I agree with history of present illness and physical exam mentioned above, I also performed my own history taking and examination. Past medical history and review of system has been obtained by myself I reviewed all pertinent labs and studies Reviewed current medications I discussed and formulated of the assessment and plan mentioned above. Please refer to the Summary mentioned below. 66-year-old female with COPD/emphysema resented to the hospital with severe abdominal pain, vomiting, severe dehydration and acute kidney injury, likely gastritis, also had some ST-T wave changes, nonspecific. Patient admitted for IV fluid hydration, IV Pepcid/PPI, monitor renal function name, trend troponin. General Appearance: not in acute distress Eyes: normal Sclerae, extraocular muscle intact ENT: hearing grossly normal Neck: supple Respiratory/Chest: normal air entry bilateral ,no respiratory distress, no accessory muscle use Cardiovascular: regular rate, rhythm, no murmur Abdomen: non tender, soft, no masses Extremities: no edema musculoskeletal: no significant swelling or inflammation in any joint Neurologic/Psychiatric: Awake alert oriented times place and person moves all extremities sensation intact cranial nerves II-12 appear to be intact Skin: normal color, warm/dry, no rash Wesam Moustafa Gerry MD, [facility] Resuscitation Status VTE Prophylaxis Will order VTE Prophylaxis: Yes
--- NOTE | 2017-06-15 16:37 | EMERGENCY ROOM VISIT NOTE ---
History Report prepared by Sharon: Sp Martins Under the Supervision of: Dr. Matteo Mueller M.D. First contact with patient: 11:01 Chief Complaint: SHORTNESS OF BREATH Stated Complaint: BREATHING, GALLBLADDER ATTACK ON THUR History of Present Illness The patient is a 66 year old female who presents to the Emergency Room with complaints of difficulty breathing that began yesterday. The patient states that her symptoms began two days ago with nausea, diarrhea, and vomiting. These symptoms have resolved at this time and she is not currently nauseous, but she is still felling weak and fatigued. She also notes feeling subjectively feverish and diaphoretic yesterday. There has not been any recorded fevers. She has a history of COPD, but no history of heart failure or blood clots. She takes a baby Aspirin every day. The patient notes that she does have a CT of her abdomen scheduled for June 19 to check for cholecystitis/cholelithiasis. Onset: Yesterday SOB Position: chest Quality: other (SOB) Associated Symptoms: + nausea, + vomiting, + diarrhea, No urinary symptoms Review of Systems See HPI for pertinent positives and negatives. A total of ten systems were reviewed and were otherwise negative. Past Medical & Surgical Medical Problems: (1) COPD (chronic obstructive pulmonary disease) (2) Emphysema lung (3) SOB (shortness of breath) Family History Patient reports no known family medical history. Social History Smoking Status: Former Smoker Alcohol Use: none Drug Use: none Housing Status: lives alone Occupation Status: employed Current/Historical Medications Scheduled Aspirin (Aspirin Ec), 81 MG PO QAM Calcium Carbonate (Calcium 600), 1,200 MG PO QAM Fexofenadine Hcl (Evita), 180 MG PO QAM Fluticasone Furoate-Vilanterol (Breo Ellipta), 1 PUFF INH QAM Multiple Vitamin (Multivitamin), 1 TAB PO DAILY Potassium Gluconate (Gnc Potassium Gluconate 9), 595 MG PO DAILY Vitamin E (Vitamin E), 1 TAB PO DAILY Scheduled PRN Albuterol (Ventolin Hfa), 2 PUFFS INH DAILY PRN for SOB/Wheezing Allergies Coded Allergies: No Known Allergies (Unverified , 04/02/17) Physical Exam Vital Signs Date Time Temp Pulse Resp B/P (MAP) Pulse Ox O2 Delivery O2 Flow Rate FiO2 4/27/18 18:46 72 18 141/71 93 Room Air 06/15/17 17:28 82 20 94/69 92 Room Air 06/15/17 17:11 Room Air 06/15/17 15:51 83 18 110/65 92 Room Air 06/15/17 15:19 82 06/15/17 14:11 76 20 101/77 92 Room Air 06/15/17 13:12 94 16 114/78 94 06/15/17 12:11 79 20 118/65 99 Nebulizer 06/15/17 11:59 76 06/15/17 11:31 87 16 98 Room Air 06/15/17 10:48 36.4 103 20 134/87 92 Room Air Physical Exam GENERAL: Awake, alert, well-appearing, in no distress HENT: Normocephalic, atraumatic. Dry mucous membranes. EYES: Normal conjunctiva. Sclera non-icteric. NECK: Supple. No nuchal rigidity. FROM. No JVD. RESPIRATORY: There are diminished breath sounds at the bases. Scattered wheezing bilaterally. CARDIAC: Regular rate, normal rhythm. Extremities warm and well perfused. Pulses equal. ABDOMEN: Soft, non-distended. There is mild epigastric abdominal discomfort, no discrete abdominal tenderness to palpation. No rebound or guarding. No masses. RECTAL: Deferred. MUSCULOSKELETAL: Chest examination reveals no tenderness. The back is symmetrical on inspection without obvious abnormality. There is no CVA tenderness to palpation. No joint edema. LOWER EXTREMITIES: Calves are equal size bilaterally and non-tender. No edema. No discoloration. NEURO: Normal sensorium. No sensory or motor deficits noted. SKIN: No rash or jaundice noted. Medical Decision & Procedures ER Provider Diagnostic Interpretation: Radiology results as stated below per my review and radiologist interpretation: CHEST ONE VIEW PORTABLE CLINICAL HISTORY: Chest pain. COMPARISON STUDY: Chest CT May 30, 2017. FINDINGS: Severe emphysema is noted. No pneumothorax or pleural effusion is noted. There is no consolidation or evidence for pulmonary edema. Cardiomediastinal silhouette is normal. IMPRESSION: 1. No acute cardiopulmonary findings. 2. Severe emphysema. Electronically signed by: Mahad Shah M.D. 06/15/2017 11:37 AM Dictated Date/Time: 06/15/2017 11:36 AM Laboratory Results 06/15/17 11:00 Red Blood Count 5.58, Mean Corpuscular Volume 86.4, Mean Corpuscular Hemoglobin 29.9, Mean Corpuscular Hemoglobin Concent 34.6, Mean Platelet Volume 11.0, Neutrophils (%) (Auto) 76.5, Lymphocytes (%) (Auto) 9.0, Monocytes (%) (Auto) 14.1, Eosinophils (%) (Auto) 0.0, Basophils (%) (Auto) 0.1, Neutrophils # (Auto ) 7.02, Lymphocytes # (Auto) 0.83, Monocytes # (Auto) 1.29, Eosinophils # (Auto ) 0.00, Basophils # (Auto) 0.01 06/15/17 11:00 Test 06/15/17 11:00 06/15/17 11:36 06/15/17 13:10 06/15/17 14:52 White Blood Count 9.18 K/uL (4.8-10.8) Red Blood Count 5.58 M/uL (4.2-5.4) Hemoglobin 16.7 g/dL (12.0-16.0) Hematocrit 48.2 % (37-47) Mean Corpuscular Volume 86.4 fL (80-100) Mean Corpuscular Hemoglobin 29.9 pg (25-34) Mean Corpuscular Hemoglobin Concent 34.6 g/dl (32-36) Platelet Count 238 K/uL (130-400) Mean Platelet Volume 11.0 fL (7.4-10.4) Neutrophils (%) (Auto) 76.5 % Lymphocytes (%) (Auto) 9.0 % Monocytes (%) (Auto) 14.1 % Eosinophils (%) (Auto) 0.0 % Basophils (%) (Auto) 0.1 % Neutrophils # (Auto) 7.02 K/uL (1.4-6.5) Lymphocytes # (Auto) 0.83 K/uL (1.2-3.4) Monocytes # (Auto) 1.29 K/uL (0.11-0.59) Eosinophils # (Auto) 0.00 K/uL (0-0.5) Basophils # (Auto) 0.01 K/uL (0-0.2) RDW Standard Deviation 43.2 fL (36.4-46.3) RDW Coefficient of Variation 13.7 % (11.5-14.5) Immature Granulocyte % (Auto) 0.3 % Immature Granulocyte # (Auto) 0.03 K/uL (0.00-0.02) Anion Gap 8.0 mmol/L (3-11) Est Creatinine Clear Calc Drug Dose 31.7 ml/min Estimated GFR () 55.3 Estimated GFR (Non- 47.7 BUN/Creatinine Ratio 32.7 (10-20) Calcium Level 9.4 mg/dl (8.5-10.1) Total Bilirubin 1.0 mg/dl (0.2-1) Direct Bilirubin 0.2 mg/dl (0-0.2) Aspartate Amino Transf (AST/SGOT) 29 U/L (15-37) Alanine Aminotransferase (ALT/SGPT) 28 U/L (12-78) Alkaline Phosphatase 71 U/L (45-117) Total Protein 8.7 gm/dl (6.4-8.2) Albumin 4.1 gm/dl (3.4-5.0) Lipase 125 U/L (73-393) Venous Blood pH 7.39 (7.36-7.41) Venous Blood Partial Pressure CO2 41 mmHg (38.0-50.0) Venous Blood Partial Pressure O2 26 mmHg Venous Blood HCO3 24 mmol/L Venous Blood Oxygen Saturation < 60.0 % Venous Blood Base Excess -0.5 mEq/L Urine Color YELLOW Urine Appearance CLEAR (CLEAR) Urine pH 5.5 (4.5-7.5) Urine Specific [place] 1.027 (1.000-1.030) Urine Protein TRACE (NEG) Urine Glucose (UA) NEG (NEG) Urine Ketones 1+ (NEG) Urine Occult Blood NEG (NEG) Urine Nitrite NEG (NEG) Urine Bilirubin NEG (NEG) Urine Urobilinogen NEG (NEG) Urine Leukocyte Esterase NEG (NEG) Urine WBC (Auto) 5-10 /hpf (0-5) Urine RBC (Auto) 0-4 /hpf (0-4) Urine Hyaline Casts (Auto) 10-30 /lpf (0-5) Urine Epithelial Cells (Auto) >30 /lpf (0-5) Urine Bacteria (Auto) NEG (NEG) Urine Renal Epithelial Cells 0-5 /lpf (0-5) Urine Crystals CALCIUM OXALATE (NONE Urine Pathogenic Casts See comments /lpf (0) Phosphorus Level 2.1 mg/dl (2.5-4.9) Magnesium Level 2.1 mg/dl (1.8-2.4) Troponin I 0.022 ng/ml (0-0.045) Test 06/15/17 15:20 Influenza Type A (RT-PCR) Neg for Influ A (NEG) Influenza Type B (RT-PCR) Neg for Influ B (NEG) Laboratory results reviewed by me Medications Administered Medications (Trade) Dose Ordered Sig/Analilia Route Start Time Stop Time Status Last Admin Dose Admin Sodium Chloride 1,000 ml @ 999 mls/hr Q1H1M STAT IV 06/15/17 11:11 06/15/17 12:11 DC 06/15/17 11:11 999 MLS/HR Methylprednisolone Sodium Succinate (Solu-Medrol IV) 125 mg NOW STAT IV 06/15/17 11:20 06/15/17 11:21 DC 06/15/17 11:26 125 MG Albuterol/ Ipratropium (Duoneb) 12 ml ONE ONCE INH 06/15/17 11:30 06/15/17 11:31 DC 06/15/17 11:31 12 ML Famotidine (Pepcid Tab) 20 mg NOW ONCE PO 06/15/17 15:00 06/15/17 15:01 DC 06/15/17 14:59 20 MG Ondansetron HCl (Zofran Inj) 4 mg NOW STAT IV 06/15/17 14:48 06/15/17 14:50 DC 06/15/17 14:59 4 MG Sodium Chloride 1,000 ml @ 999 mls/hr Q1H1M STAT IV 06/15/17 14:51 06/15/17 15:51 DC 06/15/17 14:51 999 MLS/HR Al Hydroxide/Mg Hydroxide (Maalox Susp) 30 ml STK-MED ONCE .ROUTE 06/15/17 14:56 06/15/17 14:57 DC 06/15/17 15:00 30 ML Lidocaine HCl (Viscous Lidocaine 2% Soln) 20 ml STK-MED ONCE .ROUTE 06/15/17 14:57 06/15/17 14:58 DC 06/15/17 14:57 20 ML Aspirin (Aspirin Chew) 324 mg NOW STAT PO 06/15/17 15:46 06/15/17 15:47 DC 06/15/17 15:50 324 MG ECG Per My Interpretation Indication: SOB/dyspnea Rate (beats per minute): 88 Rhythm: normal sinus Findings: T-wave inversion (Lateral and inferior), other (Normal [place]) Comparison ECG Date: 04/16/2017 Change: T-wave inversions are new ED Course 1107: The patient was evaluated in room A2. A complete history and physical exam was performed. 1259: I updated the patient at this time. She was resting in bed. 1445: I checked on the patient she is agreeable to an inpatient stay. 1603: I discussed the case with Dr. Benjamin Garrett. He said he will get back to me in just a moment. 1623: I discussed the case with Dr. Benjamin Garrett - [facility] Hospitalist. He will evaluated the patient for further treatment. Medical Decision I reviewed the patient's past medical history, medications, and the nursing notes as described above. Differential diagnosis: Etiologies such as infections, reactive airway disease, pneumonia, pneumothorax , COPD, CHF, cardiac ischemia, pulmonary embolism, musculoskeletal, appendicitis , diverticulitis, PUD, biliary pathology, UTI, pancreatitis, obstruction, mesenteric ischemia, aortic pathology, infections, inflammatory bowel disease, renal colic, as well as others were entertained. The patient is a 66-year-old woman with a past medical history of COPD who presents to emergency department with complaint of generalized weakness and increased shortness of breath in setting of having episode of nausea vomiting diarrhea on Sunday which now is mostly resolved per hpi. Of note, the patient feels like this is likely a "gallbladder attack" because her mother had similar symptoms and thus her PCP has ordered her an outpatient CAT scan for Sunday. On arrival the patient is fatigued appearing but no acute distress with heart rate in the 100s but otherwise vital signs stable. On exam the patient has decreased breath sounds at the bases with scattered wheezes. She has mild epigastric discomfort but no discrete tenderness. Bedside ultrasound does demonstrate gallstones but no pericholecystic fluid. WBC within normal limits. Hemoglobin 16.7 with BUN/CR > 30 both consistent with dehydration. EKG on arrival demonstrates inferior lateral T-wave inversions that appear new from prior did appears somewhat dynamic when comparing her initial EKG to her follow-up EKG today. Patient's initial troponin is 0.017 with a delta 2 hour troponin of 0.022. Chest x-ray negative for pneumonia. Patient feeling improved after IV fluid hydration, steroids, DuoNeb, Pepcid, GI cocktail. Given the patient's significant dehydration in the setting of likely gastritis with possible demand ischemia will admit the patient for further management. She was given aspirin. Case was discussed with Dr. Sunshine [facility] hospitalist, who will admit the patient for further management. Medication Reconcilliation Current Medication List: was personally reviewed by me Blood Pressure Screening Patient's blood pressure: Normal blood pressure Consults Time Called: 1603 Consulting Physician: [facility] Returned Call: [phone] I discussed the case with Dr. Benjamin Rodriguez [facility]. He will evaluated the patient for further treatment. Impression Primary Impression: Gastritis Additional Impression: Dehydration Scribe Attestation The scribe's documentation has been prepared under my direction and personally reviewed by me in its entirety. I confirm that the note above accurately reflects all work, treatment, procedures, and medical decision making performed by me. Departure Information Dispostion Being Evaluated By Hospitalist Referrals Mary Ross, Mode.R.N.P. (PCP) Patient Instructions My [facility] Problem Qualifiers
[2017-06-15] MEDS ORDERED: ALBUTEROL HFA 8 GM INHALER INH PRN (17:00)
[2017-06-15] MEDS ORDERED: POLYETHYLENE (MIRALAX) 17 GM PACK PO PRN (17:00)
[2017-06-15] MEDS ORDERED: ALBUT/IPRATROP 3MG/0.5MG NEB 3 ML VIAL INH PRN (17:00)
[2017-06-15] MEDS ORDERED: ACETAMINOPHEN 325 MG TAB PO PRN (17:00)
[2017-06-15 17:11] VITALS: Ht 154.9 cm; Wt 43.0 kg
[2017-06-15] MEDS ORDERED: POTASSIUM PHOS 3 MMOL/1 ML INFUSION IV STA (17:11)
[2017-06-15] MEDS ORDERED: POTASSIUM PHOSPHATE INJ 24 MMOL in SODIUM CHLORIDE 0.9% 500ML 500 ML IV ONE (17:30)
[2017-06-15 19:17] VITALS: BP 136/66; PULSE 83; TEMP 36.6; O2SAT 90
[2017-06-15] MEDS: NSS + 20MEQ KCL 1000ML 1,000 ML IV SCH (19:28)
[2017-06-15 20:00] VITALS: O2SAT 90
[2017-06-15] MEDS: HEPARIN SOD 5000 UNIT/0.5 ML CARP SQ SCH (20:48)
[2017-06-15] MEDS ORDERED: PANTOprazole INJ 40 MG in SYRINGE 0 ML IV ONE (22:15)
[2017-06-15 23:57] VITALS: BP 130/70; PULSE 74; TEMP 37; O2SAT 91
[2017-06-16] VITALS (7 sets, daily range): BP systolic 110–130; BP diastolic 62–71; PULSE 59–76; TEMP 36.4–36.8; O2SAT 93–96
[2017-06-16] MEDS: NSS + 20MEQ KCL 1000ML 1,000 ML IV SCH (04:41)
[2017-06-16 05:55] LABS: HEMATOCRIT 36.4 % (37-47); HEMOGLOBIN 12.1 g/dL (12.0-16.0); IG# 0.01 K/uL (0.00-0.02); LYMPH % 13.2 %; MEAN CELL VOLUME 87.9 fL (80-100); MEAN CORPUSCULAR HEMOGLOBIN 29.2 pg (25-34); MEAN CORPUSCULAR HGB CONC 33.2 g/dl (32-36); MEAN PLATELET VOLUME 9.9 fL (7.4-10.4); MONO % 15.1 %; MONO ABS # 1.03 K/uL (0.11-0.59); NEUT % 71.6 %; NEUT ABS # 4.88 K/uL (1.4-6.5); PLATELET COUNT 171 K/uL (130-400); RED CELL DISTRIBUTION WIDTH CV 13.9 % (11.5-14.5); RED CELL DISTRIBUTION WIDTH SD 44.9 fL (36.4-46.3); WHITE BLOOD COUNT 6.82 K/uL (4.8-10.8)
[2017-06-16 06:34] LABS: CALCIUM 7.6 mg/dl (8.5-10.1); CREATININE 0.65 mg/dl (0.60-1.20); POTASSIUM 4.3 mmol/L (3.5-5.1)
[2017-06-16] MEDS: MULTIVITAMIN TAB PO SCH (08:02)
[2017-06-16] MEDS: ASPIRIN 81 MG ECTAB PO SCH (08:03)
[2017-06-16] MEDS: FEXOFENADINE HCL 180 MG TAB PO SCH (08:03)
[2017-06-16] MEDS: HEPARIN SOD 5000 UNIT/0.5 ML CARP SQ SCH ×2 (08:05→20:55)
[2017-06-16] MEDS ORDERED: PANTOprazole INJ 40 MG in SYRINGE 0 ML IV SCH (11:00)
--- NOTE | 2017-06-16 12:27 | Hospitalist Progress Note ---
Hospitalist Progress Note Date of Service Jun 16, 2017. (Ai Mtz ., PEACE) Subjective Pt evaluation today including: conversation w/ patient, physical exam, lab review, review of studies, review of inpatient medication list Voiding: no voiding problems Patient resting in bed. Feeling well. Tolerating clear liquid diet- requesting advancing diet. No more episodes of N/V/D. No abdominal pain. +weakness. Patient denies any fever, chills, sweats, lightheadedness, dizziness, vision changes, CP, palpitations, edema, SOB, wheezing, cough, abdominal pain, nausea, vomiting, diarrhea, urinary symptoms, melena, numbness/tingling, muscle/joint pain, anxiety/depression, active bleeding, or new skin discoloration/changes. (Ai Mtz ., GEOFFREYC) Medications Current Inpatient Medications Medications (Trade) Dose Ordered Sig/Analilia Route Start Time Stop Time Status Last Admin Dose Admin Heparin Sodium (Porcine) (Heparin Sq 5000 Unit/0.5ml) 5,000 unit Q12 SQ 06/15/17 21:00 07/15/17 20:59 06/16/17 08:05 5,000 UNIT Potassium Chloride/Sodium Chloride 1,000 ml @ 100 mls/hr Q10H IV 06/15/17 19:15 06/16/17 19:14 06/16/17 04:41 100 MLS/HR Acetaminophen (Tylenol Tab) 650 mg Q4H PRN PO 06/15/17 17:00 07/15/17 16:59 Ondansetron HCl (Zofran Inj) 4 mg Q6H PRN IV 06/15/17 17:00 07/15/17 16:59 Polyethylene (Miralax Powder Packet) 17 gm DAILY PRN PO 06/15/17 17:00 07/15/17 16:59 Albuterol (Ventolin Hfa Inhaler) 2 puffs DAILY PRN INH 06/15/17 17:00 07/15/17 16:59 Aspirin (Ecotrin Tab) 81 mg QAM PO 06/16/17 09:00 07/16/17 08:59 06/16/17 08:03 81 MG Fexofenadine HCl (Evita Tab) 180 mg QAM PO 06/16/17 09:00 07/16/17 08:59 06/16/17 08:03 180 MG Multivitamins (Multivitamin Tab) 1 tab DAILY PO 06/16/17 09:00 07/16/17 08:59 06/16/17 08:02 1 TAB Miscellaneous Information (Order Awaiting Action) 1 ea QS N/A 06/15/17 18:00 07/15/17 17:59 Albuterol/ Ipratropium (Duoneb) 3 ml QID PRN INH 06/15/17 17:00 07/15/17 16:59 Pantoprazole Sodium 40 mg/ Syringe 10 ml @ 5 mls/min DAILY@11 IV 06/16/17 11:00 07/16/17 10:59 06/16/17 10:21 5 MLS/MIN (Ai Mtz, RAJENDRA-C) Objective Vital Signs Date Time Temp Pulse Resp B/P (MAP) Pulse Ox O2 Delivery O2 Flow Rate FiO2 06/16/17 12:00 Room Air 06/16/17 08:00 Room Air 06/16/17 06:58 36.7 65 19 110/66 (81) 93 Room Air 06/16/17 04:00 Room Air 06/16/17 03:36 36.8 68 16 111/62 (78) 93 06/16/17 00:00 Room Air 06/15/17 23:57 37.0 74 16 130/70 (90) 91 Room Air 06/15/17 20:00 90 Room Air 06/15/17 19:17 36.6 83 18 136/66 (89) 90 Room Air 06/15/17 18:46 72 18 141/71 93 Room Air 06/15/17 17:28 82 20 94/69 92 Room Air 06/15/17 17:11 Room Air 06/15/17 15:51 83 18 110/65 92 Room Air 06/15/17 15:19 82 06/15/17 14:11 76 20 101/77 92 Room Air 06/15/17 13:12 94 16 114/78 94 (Ai Mtz, PA-C) Physical Exam General Appearance: no apparent distress, + thin Eyes: normal inspection, PERRL ENT: hearing grossly normal Neck: supple Respiratory/Chest: lungs clear, no respiratory distress, no accessory muscle use Cardiovascular: regular rate, rhythm Abdomen: normal bowel sounds, non tender, soft Extremities: no pedal edema, no calf tenderness Neurologic/Psychiatric: alert, normal mood/affect, oriented x 3 Skin: normal color, warm/dry, no rash (Ai Mtz, PEACE) Laboratory Results Last 24 Hours Test 06/15/17 13:10 06/15/17 14:52 06/15/17 15:20 06/15/17 20:54 Urine Color YELLOW Urine Appearance CLEAR Urine pH 5.5 Urine Specific [place] 1.027 Urine Protein TRACE Urine Glucose (UA) NEG Urine Ketones 1+ Urine Occult Blood NEG Urine Nitrite NEG Urine Bilirubin NEG Urine Urobilinogen NEG Urine Leukocyte Esterase NEG Urine WBC (Auto) 5-10 /hpf Urine RBC (Auto) 0-4 /hpf Urine Hyaline Casts (Auto) 10-30 /lpf Urine Epithelial Cells (Auto) >30 /lpf Urine Bacteria (Auto) NEG Urine Renal Epithelial Cells 0-5 /lpf Urine Crystals CALCIUM OXALATE Urine Pathogenic Casts See comments /lpf Phosphorus Level 2.1 mg/dl Magnesium Level 2.1 mg/dl Troponin I 0.022 ng/ml 0.018 ng/ml Influenza Type A (RT-PCR) Neg for Influ A Influenza Type B (RT-PCR) Neg for Influ B Test 06/16/17 05:06 White Blood Count 6.82 K/uL Red Blood Count 4.14 M/uL Hemoglobin 12.1 g/dL Hematocrit 36.4 % Mean Corpuscular Volume 87.9 fL Mean Corpuscular Hemoglobin 29.2 pg Mean Corpuscular Hemoglobin Concent 33.2 g/dl Platelet Count 171 K/uL Mean Platelet Volume 9.9 fL Neutrophils (%) (Auto) 71.6 % Lymphocytes (%) (Auto) 13.2 % Monocytes (%) (Auto) 15.1 % Eosinophils (%) (Auto) 0.0 % Basophils (%) (Auto) 0.0 % Neutrophils # (Auto) 4.88 K/uL Lymphocytes # (Auto) 0.90 K/uL Monocytes # (Auto) 1.03 K/uL Eosinophils # (Auto) 0.00 K/uL Basophils # (Auto) 0.00 K/uL RDW Standard Deviation 44.9 fL RDW Coefficient of Variation 13.9 % Immature Granulocyte % (Auto) 0.1 % Immature Granulocyte # (Auto) 0.01 K/uL Sodium Level 140 mmol/L Potassium Level 4.3 mmol/L Chloride Level 109 mmol/L Carbon Dioxide Level 28 mmol/L Anion Gap 3.0 mmol/L Blood Urea Nitrogen 13 mg/dl Creatinine 0.65 mg/dl Est Creatinine Clear Calc Drug Dose 58.5 ml/min Estimated GFR () 108.7 Estimated GFR (Non- 93.8 BUN/Creatinine Ratio 20.2 Random Glucose 100 mg/dl Calcium Level 7.6 mg/dl Troponin I 0.020 ng/ml (Ai Mtz, PAJenniferC) Assessment and Plan This is a 66 yo F with PMHx of COPD/emphysema, remote smoking hx of 1/2 ppd x 10 years, quit 10 years ago, who presents to the ER with worsening abdominal pain and nausea/vomiting times approximately 5 days. N/V/D likely secondary to gastritis, dehydration- RESOLVED: - IV NSS + KCl 20 mEq at 100 mL/h- will stop IVF, tolerating PO fluids and hopeful advancement in diet later today - Clear liquid diet- advance as tolerated - Protonix daily - Zofran PRN for nausea, Tylenol PRN for pain/fevers - Abdominal U/S- negative for any acute findings EKG changes: - Admitted to tele for cardiac monitoring- no acute events - Cardiac enzymes negative x3 - Obtain ECHO - Repeat EKG - Consult cardiology, appreciate recommendations Mild hyponatremia secondary to dehydration- RESOLVED: Treated w/ IVF as above Acute kidney injury secondary to dehydration- RESOLVED: Treated w/ IVF as above Hypophosphatemia: Replaced IV Phosphate supplement, follow and replace PRN COPD- STABLE: Continue home inhalers and DuoNebs PRN GI prophylaxis: Protonix daily DVT prophylaxis: Heparin SQ BID Code status: LEVEL I, FULL Disposition: From home, lives alone- PT/OT and CM consulted- hopeful discharge tomorrow (Ai Mtz, PAJenniferC) Reviewed: Pt Seen/Exam by Me (Guerline Mora MD) History Physician [employer] Helper Supervision Note: I interviewed and examined the patient. Discussed with RAJENDRA Mtz and agree with findings and plan as documented in the note. Any exceptions or clarifications are listed here: Doing very well. No further N/V/D, no abd pain. Is eating a reg diet for dinner and no problems. No chest pain, no SOB, afebrile. ECG changes noted and ECHO result noted, reviewed Cardiology consultation. Trops neg. Tele with NSR. Vitals reviewed NAD, AAOx3 RRR no mgr CTAB no wcr +BS soft NT ND Ext no edema, no calf tenderness 66 yo female with N/V/D and dehydration, mild LEA, most likely viral GE, now resolved. ECG changes with TWIs noted anterolateeral leads-r/o for MS with serially neg troponins, ECHO no WMAs, normal EF, grade 2 diastolic dysfunction. Appreciate Cardio consult-no further ischemic eval needed. -continue ASA -lipids from 1 year ago excellent -has quit smoking 10 yrs ago, BPs controlled -repeat ECG in AM to see if TWIs resolved now that lyte abnormalities and renal function normal -keep overnight, transfer to medical floor now -expect dc in the AM if still rima po Documented By: Guerline Mora (Guerline Mora MD)
--- NOTE | 2017-06-16 15:50 | ECHOCARDIOGRAM REPORT ---
*NOTICE TO RECEIVING REPUBLICAN AGENCY This information is strictly Confidential and protected under [place] law. [place] law prohibits you from making any further disclosure of this information unless further disclosure is expressly permitted by the written consent of the person to whom it pertains or is authorized by law. A general authorization for the release of medical or other information is not sufficient for this purpose. Hospital accepts no responsibility if the information is made available to any other person, INCLUDING THE PATIENT. Interpretation Summary * Name: GREG URIAS Study Date: 06/16/2017 01:51 PM BP: 128/71 mmHg * Patient Location: C.2T\S\S231\S\1 HR: 69 * : 1950 (M/d/yyyy) Gender: Female Height: 61 in * Age: 66 yrs Ethnicity: CA Weight: 94 lb * Ordering Physician: Ai Mtz * Referring Physician: Self, Referred * Performed By: Mil Coleman RDCS * * Reason For Study: EKG Changes * BSA: 1.4 m2 * -- Conclusions -- * Left ventricular systolic function is normal. * Diastolic dysfunction, Grade II, consistent with elevated left atrial pressure. * Compared to an echocardiogram from 04/2015, the diastolic function appears to have worsened. Procedure Details * A complete two-dimensional transthoracic echocardiogram was performed (2D, M-mode, Doppler and color flow Doppler). * The study was technically adequate. Left Ventricle * The left ventricle is normal in size. * There is normal left ventricular wall thickness. * Ejection Fraction = 55-60%. * Left ventricular systolic function is normal. * Diastolic dysfunction, Grade II, consistent with elevated left atrial pressure. * The left ventricular wall motion is normal. Right Ventricle * The right ventricle is normal in size and function. Atria * The left atrial size is normal. * Right atrial size is normal. Mitral Valve * The mitral valve anatomy is normal. * Significant mitral regurgitation is absent. Tricuspid Valve * The tricuspid valve is not well visualized, but is grossly normal. * Significant tricuspid regurgitation is absent. Aortic Valve * The aortic valve is normal in structure and function. * The aortic valve is trileaflet. * No hemodynamically significant valvular aortic stenosis. * There is no significant aortic regurgitation. * There is turbulent diastolic flow at the commissure of the left and non coronary cusp. Pulmonic Valve * The pulmonic valve is not well visualized. Great Vessels * The aortic root is normal size. Pericardium/Pleural * There is no pericardial effusion. MMode 2D Measurements and Calculations IVSd 1.0 cm IVSs 1.5 cm LVIDd 3.3 cm LVIDs 2.5 cm LVPWd 0.99 cm LVPWs 1.5 cm IVS/LVPW 1.1 FS 26.5 % EDV(Teich) 45.7 ml ESV(Teich) 21.5 ml EF(Teich) 53.0 % EDV(cubed) 37.5 ml ESV(cubed) 14.9 ml EF(cubed) 60.2 % % IVS thick 44.6 % % LVPW thick 47.3 % LV mass(C)d 99.1 grams LV mass(C)dI 72.3 grams/m\S\2 LV mass(C)s 121.5 grams LV mass(C)sI 88.7 grams/m\S\2 SV(Teich) 24.2 ml SI(Teich) 17.7 ml/m\S\2 SV(cubed) 22.6 ml SI(cubed) 16.5 ml/m\S\2 Ao root diam 2.8 cm Ao root area 6.4 cm\S\2 ACS 1.7 cm LA dimension 2.8 cm asc Aorta Diam 3.0 cm LA/Ao 0.99 LVOT diam 2.0 cm LVOT area 3.3 cm\S\2 LVAd ap4 22.5 cm\S\2 LVLd ap4 7.8 cm EDV(MOD-sp4) 53.6 ml EDV(sp4-el) 55.3 ml LVAs ap4 14.0 cm\S\2 LVLs ap4 6.7 cm ESV(MOD-sp4) 24.1 ml ESV(sp4-el) 24.8 ml EF(MOD-sp4) 55.0 % EF(sp4-el) 55.2 % LVAd ap2 22.4 cm\S\2 LVLd ap2 7.5 cm EDV(MOD-sp2) 54.7 ml EDV(sp2-el) 56.6 ml LVAs ap2 12.3 cm\S\2 LVLs ap2 6.3 cm ESV(MOD-sp2) 19.5 ml ESV(sp2-el) 20.6 ml EF(MOD-sp2) 64.4 % EF(sp2-el) 63.6 % LVLd %diff -3.22 % EDV(MOD-bp) 54.8 ml LVLs %diff -7.70 % ESV(MOD-bp) 22.4 ml EF(MOD-bp) 59.2 % SV(MOD-sp4) 29.5 ml SI(MOD-sp4) 21.5 ml/m\S\2 SV(MOD-sp2) 35.2 ml SI(MOD-sp2) 25.7 ml/m\S\2 SV(MOD-bp) 32.4 ml SI(MOD-bp) 23.7 ml/m\S\2 SV(sp4-el) 30.5 ml SI(sp4-el) 22.3 ml/m\S\2 SV(sp2-el) 36.0 ml SI(sp2-el) 26.2 ml/m\S\2 Doppler Measurements and Calculations MV E max samuel 79.8 cm/sec MV A max samuel 69.6 cm/sec MV E/A 1.1 MV dec time 0.22 sec Ao V2 max 100.9 cm/sec Ao max PG 4.1 mmHg Ao max PG (full) 1.5 mmHg NAZ(V,A) 2.6 cm\S\2 NAZ(V,D) 2.6 cm\S\2 LV V1 max PG 2.6 mmHg LV V1 max 80.9 cm/sec PA V2 max 79.4 cm/sec PA max PG 2.5 mmHg
--- NOTE | 2017-06-16 16:20 | Cardiology Consultation ---
Cardiology Consultation Date of Consultation: Jun 16, 2017. Reason for Consultation: Abnormal EKG Pt evaluation today including: conversation w/ patient, physical exam, chart review, lab review, review of studies, review of inpatient medication list History of Present Illness Patient is a 66-year-old woman who was admitted with symptoms of nausea, vomiting diarrhea and overall weakness. Patient states that she had the symptoms several days prior to admission but continued to be weak and tired which eventually prompted evaluation in the emergency room. Patient denies symptoms of fevers or chills. Her appetite has returned. She is tolerating clear liquids and anticipates a regular diet for dinner today. During her initial evaluation an EKG was obtained which was different from prior. As result, Cardiology was asked to see the patient. Patient states that prior to this illness she was very active individual. She exercises regularly at [employer] both on the treadmill and stationary bike. She is able to ambulate for over 10 minutes at an incline on a treadmill without symptoms of limiting dyspnea or chest discomfort. She states she does not have symptoms of chest discomfort and she has a cold in his coughing. She has not report dyspnea at rest or with most activity. She denies orthopnea or paroxysmal nocturnal dyspnea. She has not had dizziness or lightheadedness recently. She has not noticed any palpitations. She has not had syncope. Past Medical/Surgical History COPD Bunion Cholelithiasis Osteoporosis Solitary pulmonary nodule Past surgical history: Bunionectomy Amputation of toe Rotator cuff repair Family History FHx: dementia FHx: emphysema No history of premature coronary disease. Patient is the 10th child of 13. Brother had a murmur but no known coronary disease or cardiac problems in her family. Social History Smoking Status: Former Smoker History of Alcohol Use: No Patient scheduled retired tomorrow. 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 Review of Systems Respiratory: + cough Per HPI. All Other Systems: Reviewed and Negative Allergies Coded Allergies: No Known Allergies (Unverified , 04/02/17) Medications Current Inpatient Medications Medications (Trade) Dose Ordered Sig/Analilia Route Start Time Stop Time Status Last Admin Dose Admin Heparin Sodium (Porcine) (Heparin Sq 5000 Unit/0.5ml) 5,000 unit Q12 SQ 06/15/17 21:00 07/15/17 20:59 06/16/17 08:05 5,000 UNIT Acetaminophen (Tylenol Tab) 650 mg Q4H PRN PO 06/15/17 17:00 07/15/17 16:59 Ondansetron HCl (Zofran Inj) 4 mg Q6H PRN IV 06/15/17 17:00 07/15/17 16:59 Polyethylene (Miralax Powder Packet) 17 gm DAILY PRN PO 06/15/17 17:00 07/15/17 16:59 Albuterol (Ventolin Hfa Inhaler) 2 puffs DAILY PRN INH 06/15/17 17:00 07/15/17 16:59 Aspirin (Ecotrin Tab) 81 mg QAM PO 06/16/17 09:00 07/16/17 08:59 06/16/17 08:03 81 MG Fexofenadine HCl (Evita Tab) 180 mg QAM PO 06/16/17 09:00 07/16/17 08:59 06/16/17 08:03 180 MG Multivitamins (Multivitamin Tab) 1 tab DAILY PO 06/16/17 09:00 07/16/17 08:59 06/16/17 08:02 1 TAB Miscellaneous Information (Order Awaiting Action) 1 ea QS N/A 06/15/17 18:00 07/15/17 17:59 Albuterol/ Ipratropium (Duoneb) 3 ml QID PRN INH 06/15/17 17:00 07/15/17 16:59 Pantoprazole Sodium (Protonix Tab) 40 mg QAM PO 06/17/17 09:00 06/21/17 08:59 Physical Exam Vital Signs Past 12 Hours Date Time Temp Pulse Resp B/P (MAP) Pulse Ox O2 Delivery O2 Flow Rate FiO2 06/16/17 16:00 Room Air 06/16/17 15:08 36.7 59 16 130/64 (86) 95 Room Air 06/16/17 14:25 76 96 06/16/17 12:00 Room Air 06/16/17 11:49 36.6 69 18 128/71 (90) 94 Room Air 06/16/17 08:00 Room Air 06/16/17 06:58 36.7 65 19 110/66 (81) 93 Room Air She is alert and oriented x3. Mood affect appear normal. She answered all questions appropriately. HEENT: Sclerae are anicteric. Pupils are equal and reactive to light and accommodation. Extraocular movements were intact. Neuro: Cranial nerves intact Neck: Examination of the submandibular region did not reveal any significant lymphadenopathy. Carotids are palpable bilaterally and free of bruits on auscultation. There was no evidence of jugular venous distention. The thyroid was not enlarged. Lungs: Lungs are clear to auscultation bilaterally. There are no rales wheezes or rhonchi. She has normal respiratory effort without use of accessory muscles. There is normal pulmonary excursion. Cardiac: The rhythm was regular. S1 and S2 were normal. There are no murmurs on examination. The PMI was not markedly displaced on palpation. Abdomen: The abdomen was soft and nontender. Extremities: Patient has bilateral radial pulses that are equal in intensity. There is no evidence cyanosis or clubbing. There was no evidence of significant peripheral edema bilaterally. Skin: There are no rashes noted on examination today. Data Laboratory Results: Last 24 Hours Test 06/15/17 20:54 06/16/17 05:06 Troponin I 0.018 ng/ml 0.020 ng/ml White Blood Count 6.82 K/uL Red Blood Count 4.14 M/uL Hemoglobin 12.1 g/dL Hematocrit 36.4 % Mean Corpuscular Volume 87.9 fL Mean Corpuscular Hemoglobin 29.2 pg Mean Corpuscular Hemoglobin Concent 33.2 g/dl Platelet Count 171 K/uL Mean Platelet Volume 9.9 fL Neutrophils (%) (Auto) 71.6 % Lymphocytes (%) (Auto) 13.2 % Monocytes (%) (Auto) 15.1 % Eosinophils (%) (Auto) 0.0 % Basophils (%) (Auto) 0.0 % Neutrophils # (Auto) 4.88 K/uL Lymphocytes # (Auto) 0.90 K/uL Monocytes # (Auto) 1.03 K/uL Eosinophils # (Auto) 0.00 K/uL Basophils # (Auto) 0.00 K/uL RDW Standard Deviation 44.9 fL RDW Coefficient of Variation 13.9 % Immature Granulocyte % (Auto) 0.1 % Immature Granulocyte # (Auto) 0.01 K/uL Sodium Level 140 mmol/L Potassium Level 4.3 mmol/L Chloride Level 109 mmol/L Carbon Dioxide Level 28 mmol/L Anion Gap 3.0 mmol/L Blood Urea Nitrogen 13 mg/dl Creatinine 0.65 mg/dl Est Creatinine Clear Calc Drug Dose 58.5 ml/min Estimated GFR () 108.7 Estimated GFR (Non- 93.8 BUN/Creatinine Ratio 20.2 Random Glucose 100 mg/dl Calcium Level 7.6 mg/dl Imaging: Chest x-ray was unremarkable. Abdominal ultrasound did not reveal any evidence of cholecystitis EKG: Normal sinus rhythm with T-wave inversions Telemetry reviewed: No arrhythmia Echocardiogram performed today revealed preserved LV systolic function. No regional wall motion abnormalities. No significant valvular heart disease. Small area of turbulent flow at the commissure between the left in non coronary cusps of the aortic valve. Unclear significance. Assessment & Plan 1. Abnormal EKG: I reviewed the patient's prior EKGs for comparison suggests there has been a change. While the T-wave inversions are certainly concerning for ischemic heart disease, the patient did not manifest any symptoms of angina or coronary insufficiency. She has a normal echocardiogram without evidence of wall motion abnormalities or prior infarct. She also has a history of active and regular exercise which does not produce any symptoms of angina. As such, I think we can continue with standard cardiac risk factor modification and defer any additional ischemic testing at this time. I did discuss symptoms of which to be aware with the patient. Should she develop any new symptoms especially with exercise provocative testing would be indicated. It is possible that her electrolyte derangements played a role in her T-wave inversions. No those are corrected a repeat EKG could be obtained in the outpatient setting for comparison.
[2017-06-16] MEDS: ONDANSETRON INJ 2 MG/ML 2 ML VIAL IV PRN (19:06)
[2017-06-17 00:21] VITALS: BP 125/71; PULSE 64; TEMP 36.7; O2SAT 94
[2017-06-17] MEDS: ONDANSETRON INJ 2 MG/ML 2 ML VIAL IV PRN (02:16)
[2017-06-17 06:05] LABS: BASO % 0.3 %; BASO ABS # 0.02 K/uL (0-0.2); EOS % 0.2 %; EOS ABS # 0.01 K/uL (0-0.5); HEMATOCRIT 42.1 % (37-47); IG# 0.01 K/uL (0.00-0.02); LYMPH % 14.7 %; LYMPH ABS # 0.89 K/uL (1.2-3.4); MEAN CELL VOLUME 87.5 fL (80-100); MEAN CORPUSCULAR HEMOGLOBIN 29.1 pg (25-34); MEAN CORPUSCULAR HGB CONC 33.3 g/dl (32-36); MEAN PLATELET VOLUME 10.7 fL (7.4-10.4); MONO % 13.4 %; MONO ABS # 0.81 K/uL (0.11-0.59); NEUT % 71.2 %; PLATELET COUNT 177 K/uL (130-400); RED CELL DISTRIBUTION WIDTH CV 13.6 % (11.5-14.5); RED CELL DISTRIBUTION WIDTH SD 43.8 fL (36.4-46.3); WHITE BLOOD COUNT 6.04 K/uL (4.8-10.8)
[2017-06-17 06:34] LABS: CALCIUM 8.2 mg/dl (8.5-10.1); CREATININE 0.51 mg/dl (0.60-1.20); POTASSIUM 3.7 mmol/L (3.5-5.1)
[2017-06-17 06:36] LABS: PHOSPHORUS 1.9 mg/dl (2.5-4.9)
[2017-06-17 07:12] VITALS: BP 135/77; PULSE 65; TEMP 36.6; O2SAT 94
[2017-06-17 08:00] VITALS: O2SAT 94
[2017-06-17] MEDS: MULTIVITAMIN TAB PO SCH (08:23)
[2017-06-17] MEDS: FEXOFENADINE HCL 180 MG TAB PO SCH (08:24)
[2017-06-17] MEDS: ASPIRIN 81 MG ECTAB PO SCH (08:24)
[2017-06-17] MEDS: HEPARIN SOD 5000 UNIT/0.5 ML CARP SQ SCH ×2 (08:26→22:31)
[2017-06-17] MEDS ORDERED: PANTOprazole SOD 40 MG TAB PO SCH (09:00)
[2017-06-17] MEDS: POT PHOSPHATE MONOBASIC W/ SOD TAB PO SCH ×2 (12:20→22:32)
[2017-06-17] MEDS ORDERED: PRT40 PO (12:53)
--- NOTE | 2017-06-17 13:11 | Hospitalist Progress Note ---
Hospitalist Progress Note Date of Service Jun 17, 2017. (Ai Mtz ., PEACE) Subjective Pt evaluation today including: conversation w/ patient, conversation w/ family , physical exam, lab review, review of inpatient medication list Voiding: no voiding problems Patient resting in bed. Tolerating diet. Diarrhea returned- +12 BM last evening- c.diff positive. No abdominal pain. Patient denies any fever, chills, sweats, lightheadedness, dizziness, vision changes, CP, palpitations, edema, SOB, wheezing, cough, abdominal pain, nausea, vomiting, urinary symptoms, melena, numbness/tingling, weakness, muscle/joint pain, anxiety/depression, active bleeding, or new skin discoloration/changes. (Ai Mtz ., GEOFFREYC) Medications Current Inpatient Medications Medications (Trade) Dose Ordered Sig/Analilia Route Start Time Stop Time Status Last Admin Dose Admin Heparin Sodium (Porcine) (Heparin Sq 5000 Unit/0.5ml) 5,000 unit Q12 SQ 06/15/17 21:00 07/15/17 20:59 06/17/17 08:26 5,000 UNIT Acetaminophen (Tylenol Tab) 650 mg Q4H PRN PO 06/15/17 17:00 07/15/17 16:59 Ondansetron HCl (Zofran Inj) 4 mg Q6H PRN IV 06/15/17 17:00 07/15/17 16:59 06/17/17 02:16 4 MG Polyethylene (Miralax Powder Packet) 17 gm DAILY PRN PO 06/15/17 17:00 07/15/17 16:59 Albuterol (Ventolin Hfa Inhaler) 2 puffs DAILY PRN INH 06/15/17 17:00 07/15/17 16:59 Aspirin (Ecotrin Tab) 81 mg QAM PO 06/16/17 09:00 07/16/17 08:59 06/17/17 08:24 81 MG Fexofenadine HCl (Evita Tab) 180 mg QAM PO 06/16/17 09:00 07/16/17 08:59 06/17/17 08:24 180 MG Multivitamins (Multivitamin Tab) 1 tab DAILY PO 06/16/17 09:00 07/16/17 08:59 06/17/17 08:23 1 TAB Miscellaneous Information (Order Awaiting Action) 1 ea QS N/A 06/15/17 18:00 07/15/17 17:59 Albuterol/ Ipratropium (Duoneb) 3 ml QID PRN INH 06/15/17 17:00 07/15/17 16:59 Pantoprazole Sodium (Protonix Tab) 40 mg QAM PO 06/17/17 09:00 06/21/17 08:59 06/17/17 08:23 40 MG Potassium/ Phosphorus/Sodium (Phospha 250 Neutral 155-852-130 Mg) 2 tab TID PO 06/17/17 14:00 06/18/17 13:59 06/17/17 12:20 2 TAB (Ai Mtz PA-C) Objective Vital Signs Date Time Temp Pulse Resp B/P (MAP) Pulse Ox O2 Delivery O2 Flow Rate FiO2 06/17/17 08:00 94 Room Air 06/17/17 07:12 36.6 65 18 135/77 (96) 94 Room Air 06/17/17 00:21 36.7 64 18 125/71 (89) 94 Room Air 06/16/17 20:11 Room Air 06/16/17 19:31 36.4 66 20 128/70 (89) 93 Room Air 06/16/17 19:13 36.7 59 16 95 06/16/17 16:00 Room Air 06/16/17 15:08 36.7 59 16 130/64 (86) 95 Room Air 06/16/17 14:25 76 96 (Ai Mtz PA-C) Physical Exam General Appearance: no apparent distress, + thin Eyes: normal inspection, PERRL ENT: hearing grossly normal Neck: supple Respiratory/Chest: lungs clear, no respiratory distress, no accessory muscle use Cardiovascular: regular rate, rhythm Abdomen: normal bowel sounds, non tender, soft Extremities: no pedal edema, no calf tenderness Neurologic/Psychiatric: alert, normal mood/affect, oriented x 3 Skin: normal color, warm/dry, no rash (iA Mtz PA-C) Laboratory Results Last 24 Hours Test 06/17/17 05:30 White Blood Count 6.04 K/uL Red Blood Count 4.81 M/uL Hemoglobin 14.0 g/dL Hematocrit 42.1 % Mean Corpuscular Volume 87.5 fL Mean Corpuscular Hemoglobin 29.1 pg Mean Corpuscular Hemoglobin Concent 33.3 g/dl Platelet Count 177 K/uL Mean Platelet Volume 10.7 fL Neutrophils (%) (Auto) 71.2 % Lymphocytes (%) (Auto) 14.7 % Monocytes (%) (Auto) 13.4 % Eosinophils (%) (Auto) 0.2 % Basophils (%) (Auto) 0.3 % Neutrophils # (Auto) 4.30 K/uL Lymphocytes # (Auto) 0.89 K/uL Monocytes # (Auto) 0.81 K/uL Eosinophils # (Auto) 0.01 K/uL Basophils # (Auto) 0.02 K/uL RDW Standard Deviation 43.8 fL RDW Coefficient of Variation 13.6 % Immature Granulocyte % (Auto) 0.2 % Immature Granulocyte # (Auto) 0.01 K/uL Sodium Level 136 mmol/L Potassium Level 3.7 mmol/L Chloride Level 103 mmol/L Carbon Dioxide Level 28 mmol/L Anion Gap 5.0 mmol/L Blood Urea Nitrogen 12 mg/dl Creatinine 0.51 mg/dl Est Creatinine Clear Calc Drug Dose 74.7 ml/min Estimated GFR () 117.0 Estimated GFR (Non- 100.9 BUN/Creatinine Ratio 23.3 Random Glucose 78 mg/dl Calcium Level 8.2 mg/dl Phosphorus Level 1.9 mg/dl (Ai Mtz, PA-C) Assessment and Plan This is a 66 yo F with PMHx of COPD/emphysema, remote smoking hx of 1/2 ppd x 10 years, quit 10 years ago, who presents to the ER with worsening abdominal pain and nausea/vomiting times approximately 5 days. +C. diff- first episode: - Treated w/ IVF at admission- tolerating full diet, IVF stopped - Contact precautions - Stop PPI - Start Vancomycin PO QID- started on 06/17 - Zofran PRN for nausea, Tylenol PRN for pain/fevers - Abdominal U/S- negative for any acute findings EKG changes w/ t-wave inversions- STABLE: - Admitted to [facility] for cardiac monitoring- no acute events- transferred to med/ surg - Cardiac enzymes negative x3 - ECHO- preserved EF, grade II diastolic dysfunction, no wall abnormalities - Repeat EKG- STABLE - Consult cardiology, appreciate recommendations- no further workup indicated at this time Mild hyponatremia secondary to dehydration- RESOLVED: Treated w/ IVF as above Acute kidney injury secondary to dehydration- RESOLVED: Treated w/ IVF as above Hypophosphatemia: Replacing w/ PO Phosphate supplement, follow and replace PRN COPD- STABLE: Continue home inhalers and DuoNebs PRN GI prophylaxis: PPI stopped due to C.diff infection DVT prophylaxis: Heparin SQ BID Code status: LEVEL I, FULL Disposition: From home, lives alone- PT/OT and CM following (Ai Mtz, PEACE) Reviewed: Pt Seen/Exam by Me (Guerline Mora MD) History Physician Tin Recovery Worker Supervision Note: I interviewed and examined the patient. Discussed with RAJENDRA Mzt and agree with findings and plan as documented in the note. Any exceptions or clarifications are listed here: She had numerous episodes of diarrhea last night and was C. difficile positive this morning. Has some very minor abdominal cramping. Reports her sister had diarrhea for several days and she was exposed to her prior to admission. No recent antibiotic use. No previous history of C. difficile. Vitals reviewed NAD, AAOx3 RRR no mgr CTAB no wcr +BS soft NT ND Ext no edema, no calf tenderness 66 yo female with N/V/D and dehydration, mild LEA, most likely viral GE, now resolved. ECG changes with TWIs noted anterolateeral leads-r/o for MD with serially neg troponins, ECHO no WMAs, normal EF, grade 2 diastolic dysfunction/ chronic diastolic CHF. Appreciate Cardio consult-no further ischemic eval needed. Is not volume overloaded Now with C. difficile antigen positive in the stool. -Started p.o. vancomycin 125 mg p.o. 4 times daily 10 day course -Should start probiotic in 5 days to help restore normal travis -continue ASA -lipids from 1 year ago excellent -has quit smoking 10 yrs ago, BPs controlled -repeat ECG today shows resolution of T-wave inversions previously -If diarrhea slows down and she is continuing to keep up with p.o. intake, she can be discharged home tomorrow Documented By: Guerline Mora (Guerline Mora MD)
[2017-06-17] MEDS: RASPBERRY SYRUP 5 ML UDP PO SCH ×3 (14:30→22:32)
[2017-06-17] MEDS: VANCOMYCIN HCL 125 MG/2.5ML SOLN PO SCH ×3 (14:30→22:32)
[2017-06-17 14:50] VITALS: BP 129/77; PULSE 68; TEMP 36.5; O2SAT 94
[2017-06-17 16:00] VITALS: O2SAT 95
[2017-06-17 23:28] VITALS: BP 127/72; PULSE 82; TEMP 37.1; O2SAT 91
[2017-06-18 07:15] VITALS: BP 117/65; PULSE 92; TEMP 36.9; O2SAT 94
[2017-06-18] MEDS: FEXOFENADINE HCL 180 MG TAB PO SCH (07:51)
[2017-06-18] MEDS: POT PHOSPHATE MONOBASIC W/ SOD TAB PO SCH (07:51)
[2017-06-18] MEDS: MULTIVITAMIN TAB PO SCH (07:51)
[2017-06-18] MEDS: ASPIRIN 81 MG ECTAB PO SCH (07:51)
[2017-06-18] MEDS: RASPBERRY SYRUP 5 ML UDP PO SCH (07:52)
[2017-06-18] MEDS: HEPARIN SOD 5000 UNIT/0.5 ML CARP SQ SCH (07:58)
[2017-06-18] MEDS: VANCOMYCIN HCL 125 MG/2.5ML SOLN PO SCH (07:58)
[2017-06-18 08:06] LABS: BASO % 0.5 %; BASO ABS # 0.03 K/uL (0-0.2); EOS % 0.8 %; EOS ABS # 0.05 K/uL (0-0.5); HEMATOCRIT 43.1 % (37-47); HEMOGLOBIN 14.5 g/dL (12.0-16.0); IG# 0.01 K/uL (0.00-0.02); LYMPH % 15.9 %; LYMPH ABS # 0.96 K/uL (1.2-3.4); MEAN CELL VOLUME 87.1 fL (80-100); MEAN CORPUSCULAR HEMOGLOBIN 29.3 pg (25-34); MEAN CORPUSCULAR HGB CONC 33.6 g/dl (32-36); MEAN PLATELET VOLUME 10.2 fL (7.4-10.4); MONO % 13.6 %; MONO ABS # 0.82 K/uL (0.11-0.59); NEUT ABS # 4.17 K/uL (1.4-6.5); PLATELET COUNT 174 K/uL (130-400); RED CELL DISTRIBUTION WIDTH CV 13.4 % (11.5-14.5); RED CELL DISTRIBUTION WIDTH SD 42.4 fL (36.4-46.3); WHITE BLOOD COUNT 6.04 K/uL (4.8-10.8)
[2017-06-18 08:34] LABS: CALCIUM 8.3 mg/dl (8.5-10.1); CREATININE 0.62 mg/dl (0.60-1.20); POTASSIUM 3.5 mmol/L (3.5-5.1)
[2017-06-18 08:35] LABS: PHOSPHORUS 3.7 mg/dl (2.5-4.9)
[2017-06-18] MEDS ORDERED: MAGNESIUM SULFATE 1GM / D5W 100 ML IV STA (08:55)
[2017-06-18] MEDS ORDERED: VANC5CAP PO (10:20)
[2017-06-18] MEDS ORDERED: SACC250C3 PO (10:20)
--- NOTE | 2017-06-18 10:24 | Discharge Instructions ---
Discharge Instructions Date of Service Jun 18, 2017. Admission Reason for Admission: Nausea, vomiting, diarrhea, dehydration, abnormal EKG Discharge Discharge Diagnosis / Problem: Clostridium difficile colitis, dehydration, abnormal EKG Discharge Goals Goal(s): Improve disease control, Diagnostic testing, Therapeutic intervention Activity Recommendations Activity Limitations: as noted below Exercise/Sports Limitations: gradually increase as tolerated Shower/Bathe: no limitations Driving or Machine Use: no limitations . Instructions / Follow-Up Instructions / Follow-Up You were admitted with nausea, vomiting, diarrhea, and dehydration. You were found to have an infection in the bowels called Clostridium difficile. Please finish out the course of antibiotics with vancomycin for 9 more days. Please continue to drink plenty of fluids until the diarrhea is completely resolved. You had an abnormal EKG, but you did not have a heart attack. You had an ultrasound of the heart which was normal, and you were seen by a raspberry checker. A repeat EKG after your electrolytes were replenished was normal. You do not need any further testing of the heart performed. Please follow-up with your primary care physician within 1-2 weeks after discharge. Current Hospital Diet Patient's current hospital diet: Regular Diet Discharge Diet Recommended Diet: Regular Diet Procedures Procedures Performed: Chest x-ray Gallbladder ultrasound Pending Studies Studies pending at discharge: yes List of pending studies: Stool culture Medical Emergencies . Who to Call and When: Medical Emergencies: If at any time you feel your situation is an emergency, please call 911 immediately. . Non-Emergent Contact Non-Emergency issues call your: Primary Care Provider Call Non-Emergent contact if: you have a fever, temperature is above 100.5, your pain is not controlled, your pain is worsening, your pain is unusual for you, your pain is concerning you, you have any medication questions . . "Provider Documentation" section prepared by Guerline Mora. .
[2017-06-18 10:25] VITALS: BP 117/65; PULSE 92; TEMP 36.9; O2SAT 94
--- NOTE | 2017-06-18 10:38 | Discharge Summary ---
Discharge Summary Date of Service Jun 18, 2017. Discharge Summary Admission Date: Jun 15, 2017 at 16:54 Discharge Date: Jun 18, 2017 Discharge Disposition: Home Principal Diagnosis: Clostridium difficile colitis, LEA Problems/Secondary Diagnoses: COPD/emphysema Chronic diastolic CHF Hypomagnesemia Hypophosphatemia Hyponatremia LEA Asymptomatic cholelithiasis Abnormal ECG Procedures: Gallbladder ultrasound Chest x-ray Echocardiogram Consultations: Cardiology Medication Reconciliation New Medications: Saccharomyces Boulardii (Florastor) 250 Mg Cap 1 CAP PO DAILY for 30 Days, #30 CAP To start on 06/21/17, this is OTC Vancomycin Hcl (Vancomycin) 125 Mg Cap 125 MG PO QID for 9 Days, #36 CAP Continued Medications: Albuterol (Ventolin Hfa) 60 Puffs/5400 Mcg Aers 2 PUFFS INH DAILY PRN for SOB/Wheezing Aspirin (Aspirin Ec) 81 Mg Tab 81 MG PO QAM Calcium Carbonate (Calcium 600) 600 Mg Tab 1200 MG PO QAM Fexofenadine Hcl (Evita) 180 Mg Tab 180 MG PO QAM, TAB Fluticasone Furoate-Vilanterol (Breo Ellipta) 1 Inh Inh 1 PUFF INH QAM Multiple Vitamin (Multivitamin) 1 Tab Tab 1 TAB PO DAILY, TAB Potassium Gluconate (Gnc Potassium Gluconate 9) 595 Mg Tab 595 MG PO DAILY Vitamin E (Vitamin E) 400 Unit Tab 1 TAB PO DAILY Discharge Exam Patient improved today, feels stronger. Diarrhea has slowed down since starting vancomycin. She is tolerating a regular diet. Denies chest pain or shortness of breath. Vitals reviewed Gen: AAOx3, NAD HEENT: anicteric sclerae, EOMI CV: RRR no mgr nl S1S2 Pulm: CTAB no wcr Abd: +BS soft NT ND no masses or hernias Ext: no edema, 2+ DP pulses Skin: no rashes, warm/dry Neuro: full strength throughout Review of Systems: Constitutional: No fever, No chills Eyes: No problem reported ENT: No problem reported Respiratory: No problem reported Cardiovascular: No problem reported Abdomen: + diarrhea, No GI bleeding Musculoskeletal: No problem reported Genitourinary - Female: No problem reported Neurologic: No problem reported Psychiatric: No problem reported Endocrine: No problem reported Hematologic / Lymphatic: No problem reported Integumentary: No problem reported Hospital Course This is a 66 yo F with PMHx of COPD/emphysema, remote 20-mygw-ayga smoking hx who quit 10 years ago, who presents to the ER with worsening abdominal pain and nausea/vomiting times approximately 5 days. Nausea/vomiting/diarrhea/abdominal pain-right upper quadrant ultrasound with cholelithiasis without CBD dilatation, otherwise normal. LFTs normal. Nausea and vomiting resolved quickly, but diarrhea became profuse. She was hydrated with IV fluids and electrolytes were replenished. She then tested positive for Clostridium difficile antigen in her stool. She started treatment with p.o. vancomycin and had improvement of her diarrhea. She is tolerating p.o. and stable for discharge home to finish out a 10 day course of p.o. vancomycin. She should start on a probiotic in a few more days to help restore the normal gut travis. She can consider elective cholecystectomy for cholelithiasis if desired in the future. EKG changes w/ t-wave inversions-seen on admission and resolved after electrolyte replenishment. Echocardiogram without wall motion abnormalities and only with grade 2 diastolic dysfunction. Serial troponin was negative and she did not have any chest pain or pressure at all. Seen by cardiology who did not recommend any further cardiac testing. She does have risk factors of previous smoking which she has now quit. Her lipid panel from a year ago was excellent. She was started on a baby aspirin and should continue this upon discharge. Mild hyponatremia secondary to dehydration- RESOLVED: Treated w/ IVF as above Acute kidney injury secondary to dehydration- RESOLVED: Treated w/ IVF as above Hypophosphatemia: Replacing w/ PO Phosphate supplement COPD- STABLE: Continue home inhalers and DuoNebs PRN GI prophylaxis: PPI stopped due to C.diff infection Stable for discharge to home Total Time Spent: Greater than 30 minutes This includes examination of the patient, discharge planning, medication reconciliation, and communication with other providers. Discharge Instructions Please refer to the electronic Patient Visit Report (Discharge Instructions) for additional information. Follow-Up With PCP within 1-2 weeks Additional Copies To Mary Ross C.R.N.P.
== END 2017-06-18 12:17 | disposition home or self-care (01) | DRG 392 ==
LOC: C.EDB 10:46 → C.2T 16:54 → ENRESERV 18:12 → CANRESERV 06-16 19:02 → ENRESERV 06-16 19:03 → C.MS2W 06-16 19:30
PROVIDERS: ADMIT Internal Medicine; ATTEND Family Medicine
DX: A08.4 Viral intestinal infection, unspecified (principal); N17.9 Acute kidney failure, unspecified; E87.1 Hypo-osmolality and hyponatremia; I50.32 Chronic diastolic (congestive) heart failure; E83.39 Other disorders of phosphorus metabolism; R94.31 Abnormal electrocardiogram [ECG] [EKG]; A04.72 Enterocolitis due to Clostridium difficile, not specified as recurrent; J44.9 Chronic obstructive pulmonary disease, unspecified; K80.20 Calculus of gallbladder without cholecystitis without obstruction; M81.0 Age-related osteoporosis without current pathological fracture; Z87.891 Personal history of nicotine dependence; Z79.51 Long term (current) use of inhaled steroids; Z79.82 Long term (current) use of aspirin; Z89.429 Acquired absence of other toe(s), unspecified side; Z98.890 Other specified postprocedural states; Z82.5 Family history of asthma and other chronic lower respiratory diseases; Z81.8 Family history of other mental and behavioral disorders

== ENCOUNTER → 2017-09-17 | Outpatient (CLI) | payer OTHER ==
[~2017-09-17] MED LIST changes: +MISCCAP80 PO; +VITA1TAB4 PO; -VITA400C3 PO
== END | disposition home or self-care (01) ==
LOC: C.LABBFT 11:06
PROVIDERS: ATTEND Nurse Practitioner
DX: A04.72 Enterocolitis due to Clostridium difficile, not specified as recurrent (principal)

== ENCOUNTER → 2017-09-27 | Outpatient (CLI) | payer OTHER ==
[~2017-09-27] MED LIST changes: +HYDR-5688 PO
[2017-09-27 15:43] LABS: HEMATOCRIT 43.5 % (37-47); HEMOGLOBIN 14.4 g/dL (12.0-16.0); MEAN CELL VOLUME 87.3 fL (80-100); MEAN CORPUSCULAR HEMOGLOBIN 28.9 pg (25-34); MEAN CORPUSCULAR HGB CONC 33.1 g/dl (32-36); MEAN PLATELET VOLUME 10.6 fL (7.4-10.4); PLATELET COUNT 232 K/uL (130-400); RED CELL DISTRIBUTION WIDTH CV 13.9 % (11.5-14.5); RED CELL DISTRIBUTION WIDTH SD 44.3 fL (36.4-46.3); WHITE BLOOD COUNT 6.51 K/uL (4.8-10.8)
--- NOTE | 2017-09-27 15:49 | DIAGNOSTIC IMAGING REPORT ---
CHEST 2 VIEWS ROUTINE CLINICAL HISTORY: HEART LUNG DISEASE dyspnea COMPARISON STUDY: 06/15/2017 FINDINGS: Emphysematous change. Mild chronic parenchymal fibrosis. No acute infiltrate. IMPRESSION: No acute process. Emphysematous change. The above report was generated using voice recognition software. It may contain grammatical, syntax or spelling errors. Electronically signed by: Jd Retana M.D. 09/27/2017 3:48 PM Dictated Date/Time: 09/27/2017 3:47 PM
[2017-09-27 15:53] LABS: INR 0.9 (0.9-1.1); PTT PATIENT 25.3 SECONDS (21.0-31.0)
== END | disposition home or self-care (01) ==
LOC: C.CPL 15:09
PROVIDERS: ATTEND Podiatrist Foot & Ankle Surgery
DX: Z01.810 Encounter for preprocedural cardiovascular examination (principal); Z01.811 Encounter for preprocedural respiratory examination; Z01.812 Encounter for preprocedural laboratory examination

== ENCOUNTER → 2017-10-01 | Day surgery (SDC) | payer OTHER ==
[2017-08-28 09:41] VITALS: Ht 154.9 cm; Wt 43.6 kg
[~2017-10-01] VITALS: Ht 154.9 cm; Wt 43.6 kg
[~2017-10-01] MED LIST changes: +ATROPINE SULFATE 0.1 MG/ML 5ML SYR IV PRN; +BUPIVACAINE 0.5 % 5 MG/1 ML PF 10ML VIAL ONE; +CEFAZOLIN 1000MG IV PUSH 7.5 ML IV SCH; +EpHEDrine SULFATE INJ 50 MG/ML AMP IV PRN; +FENTANYL CITRATE INJ 50 MCG/1 ML 2 ML VIAL IV PRN; +FENTANYL CITRATE INJ 50 MCG/1 ML 2 ML VIAL ONE; +HYDROCODONE/ACETAMIN 5/325MG TAB PO PRN; +LACTATED RINGER'S 1000ML 1,000 ML IV SCH; +LIDOCAINE HCL 2% 2 ML VIAL (20MG/ML) ONE; +MIDAZOLAM HCL 1 MG/ML 2ML VIAL ONE; +ONDANSETRON INJ 2 MG/ML 2 ML VIAL IV PRN; +PROPOFOL IV EMULSION 10 MG/ML 20 ML VIAL ONE; +SODIUM CHLORIDE 0.9% 1000ML 1,000 ML IV SCH
--- NOTE | 2017-10-01 11:28 | History & Physical Bridge - SC ---
H&P Re-Evaluation Bridge Note: I have examined the patient, reviewed the History & Physical and in the interval since the performance of the History & Physical I have noted the following changes of clinical significance: No changes noted. Patient is in agreement and wishes to proceed with painful hardware removal right foot. All consents have been signed and obtained.
--- NOTE | 2017-10-01 11:33 | Discharge Instructions-SurgCtr ---
Discharge Instructions Date of Service Oct 01, 2017. Visit Reason for Visit: Right Foot Pain Due To Internal Orthopedic Device Discharge Discharge Diagnosis / Problem: Painful hardware right foot Discharge Goals Goal(s): Decrease discomfort, Improve function Medications Stopped Medications Name(s): Has been off ASA 81 mg x 5 days. Activity Recommendations Activity Limitations: as noted below My weight bear in boot right foot. Limit weight bearing as much as possible. Rest, ice, elevate. Anesthesia . Post Anesthesia Instructions: If you have had General Anesthesia or IV Sedation: * Do not drive today. * Resume driving when surgeon permits. * Do not make important decisions or sign legal documents today. * Call surgeon for: 1. Temperature elevations greater than 101 degrees F. 2. Uncontrollable pain. 3. Excessive bleeding. 4. Persistent nausea and vomiting. 5. Medication intolerance (nausea, vomiting or rash). * For nausea and vomiting use only clear liquids such as: tea, soda, bouillon until nausea subsides, then gradually increase diet as tolerated. * If you have any concerns or questions, call your surgeon's office. If physician is unavailable and it is an emergency, call 911 or go to the nearest emergency room. . Instructions / Follow-Up Instructions / Follow-Up Follow-up in office on or Sunday this week. Diet Recommendations Home Diet: resume previous diet Procedures Procedures Performed: Right foot removal painful hardware Pending Studies Studies pending at discharge: no Medical Emergencies . Who to Call and When: Medical Emergencies: If at any time you feel your situation is an emergency, please call 911 immediately. . Non-Emergent Contact Non-Emergency issues call your: Primary Care Provider, Surgeon Call Non-Emergent contact if: you have a fever, your pain is not controlled, your pain is worsening, wound has increased drainage, wound has increased redness, wound has increased pain . . "Provider Documentation" section prepared by Kehinde Bell. . [place] Drug Monitoring Program Search Results: patient reviewed within database, no issues identified
--- NOTE | 2017-10-01 12:19 | [facility] Post Operative Brief Note ---
Immediate Operative Summary Operative Date Oct 01, 2017. Pre-Operative Diagnosis Painful Hardware Right Foot Post-Operative Diagnosis Same Procedure(s) Performed Right Foot Surgical Hardware Removal Surgeon Dr. Bell Pump Machine Operator Surgeon(s) None Estimated Blood Loss 0 mL Findings Consistent with Post-Op Diagnosis Specimens None Drains None Anesthesia Type MAC Complication(s) none Disposition Accompanied Pt To Recover: no
[2017-10-01 12:26] VITALS: BP 132/71; PULSE 54; TEMP 36.2; O2SAT 96
--- NOTE | 2017-10-01 12:48 | [facility] Operative Report ---
Operative Report Operative Date Oct 01, 2017. Pre-Operative Diagnosis Painful Hardware Right Foot Post-Operative Diagnosis Same Procedure(s) Performed Right Foot Surgical Hardware Removal Surgeon Dr. 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 Specimens None Drains None Anesthesia Type MAC Complication(s) none Disposition no Indications This is a 67 year old female who presented to our office with complaint of painful hardware to her right foot. She complained specifically of one screw which she believed was coming out. Patient stated this was painful in shoe gear due to rubbing. Patient did attempt conservative treatments, consisting of shoe gear modification, alterations to lacing pattern of shoes to decrease rubbing, and padding to offload this area, all of which have failed to alleviate her symptoms. Radiographs were obtained in the office which demonstrated prominent screw to dorsal 1st metatarsal in area of previous tarsometatarsal arthrodesis site. 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 At this time, I recommend patient undergo surgical removal of painful hardware. I discussed with patient removal of prominent screw and possible removal of remaining hardware if inspection of arthrodesis site demonstrated ossification. Patient is in agreement with this; she understands that she may have hardware remaining in her right foot following the procedure. The preoperative indications, planned procedure, possible benefits, risks, complications and anticipated healing time and management were discussed with the patient in detail. She understands and elects to proceed with procedure. The consent was signed as to which is the surgical limb. No guarantees were made. All of her questions were answered to her apparent satisfaction. Medical clearance has been obtained by the patient's primary care physician. Description of Procedure Prior to transporting the patient to the operating room, the prominent painful screw was identified and marked. The patient was transported to the operating room via care and placed on the table in the supine position. Final verification of the patient, surgery, and limb designation was performed via the time out procedure. A pneumatic calf tourniquet was then placed about the patient's right calf. MAC anesthesia was then initiated by the anesthesia team. The preoperative injection was administered about the operative site, consisting of 10cc of 0.5% marcaine plain. The right lower extremity was then scrubbed, prepped and draped in the usual aseptic manner. An Esmarch was utilized to exsanguinate the limb and the pneumatic calf tourniquet was inflated to 250mm HG. At this time, the surgery began as followed: Attention was directed to the dorsal aspect of the right foot over the area of the prominent screw where an approximately 3 cm linear longitudinal incision was made. This was deepened through the skin and subcutaneous tissue using sharp and blunt dissection. Care was take to identify and retract all vital neurovascular structures. All bleeders were cauterized as necessary. The prominent screw was easily identified through the subcutaneous tissue. This was then removed without complication using a star-shaped courtesy driver. This was passed from the operative field and discarded per policy. At this time, the 1st metatarsal-medial cuneiform joint was inspected at the arthrodesis site. The bone in this area appeared to be soft and a #15 blade was able to puncture through this, suggesting pseudoarthrosis of the joint. Upon this finding, the remaining hardware were left intact. The wound was then flushed with copious amounts of normal sterile saline. Wound closure was performed using 3-0 Vicryl to the subcutaneous tissue and 3-0 nylon to the skin. At this time, the pneumatic calf tourniquet was deflated and prompt hyperemic response was demonstrated to all of the digits of the right foot. A post-operative dressing consisting of betadine soaked adaptik, 4x4 gauze , cintia and an tal wrap were applied to the right foot. Patient tolerated the procedure and anesthesia well. She was transferred from the operating room to recovery with vital signs stable and vascular status intact to the right foot. After a period of post-operative monitoring, she will be discharged home. Her condition and the results of the surgery were discussed with her family after the case. I attest to the content of the Intraoperative Record and any orders documented therein. Any exceptions are noted below.
--- NOTE | 2017-10-01 12:58 | Anesthesia Progress Nt - [facility] ---
Anesthesia Post Op Note Date & Time Oct 01, 2017 at 12:58 Vital Signs Pain Intensity: 0 Vital Signs Past 12 Hours Date Time Temp Pulse Resp B/P (MAP) Pulse Ox O2 Delivery O2 Flow Rate FiO2 10/01/17 12:26 36.2 54 16 132/71 (91) 96 Room Air 10/01/17 11:03 36.5 68 16 138/73 (94) 95 Room Air Notes Mental Status: alert / awake / arousable, participated in evaluation Nausea / Vomiting: adequately controlled Pain: adequately controlled Airway Patency, RR, SpO2: stable & adequate BP & HR: stable & adequate Hydration State: stable & adequate Anesthetic Complications: no major complications apparent
--- NOTE | 2017-10-01 13:57 | DIAGNOSTIC IMAGING REPORT ---
OSMAN FOOT, 2 VIEWS CLINICAL HISTORY: 67 years-old Female presenting with Hardware removal. TECHNIQUE: Frontal and lateral views of the right foot were obtained. COMPARISON: 04/02/2017. 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 One of the screws at the arthrodesis has been removed. Chronic changes of the heads of the proximal phalanges of the second and third toes with valgus angulation of the proximal interphalangeal joints. No radiographic evidence of acute fracture or acute malalignment allowing for osteopenia. No radiographic evidence of soft tissue emphysema. A Fiberglas cast overlies the foot. Enthesophyte at the origin of the plantar fascia. Atherosclerosis. IMPRESSION: 1. Interval removal of one of the screws at the first tarsometatarsal arthrodesis. 2. Chronic findings as above. Electronically signed by: Ochoa Conklin M.D. 10/01/2017 1:55 PM Dictated Date/Time: 10/01/2017 1:53 PM
== END | disposition home or self-care (01) ==
LOC: X.SURG 10:42
PROVIDERS: ATTEND Podiatrist Foot & Ankle Surgery
DX: T84.293A Other mechanical complication of internal fixation device of bones of foot and toes, initial encounter (principal); Y83.1 Surgical operation with implant of artificial internal device as the cause of abnormal reaction of the patient, or of later complication, without mention of misadventure at the time of the procedure; J44.9 Chronic obstructive pulmonary disease, unspecified; M81.0 Age-related osteoporosis without current pathological fracture; Z86.19 Personal history of other infectious and parasitic diseases